=== PATIENT | female | born 1935 | race Caucasian/White ===

== ENCOUNTER → 2016-12-04 | Outpatient (CLI) | payer MEDICARE, BC | LOC: LAB.O 08:58 | PROVIDERS: ATTEND Family Medicine | DX: E87.5 Hyperkalemia (principal); K29.70 Gastritis, unspecified, without bleeding ==

== ENCOUNTER → 2016-12-10 | Outpatient (CLI) | payer MEDICARE, BC | LOC: LAB.O 11:21 | PROVIDERS: ATTEND Family Medicine | DX: R10.84 Generalized abdominal pain (principal); E78.5 Hyperlipidemia, unspecified; E55.9 Vitamin D deficiency, unspecified; Z79.899 Other long term (current) drug therapy ==

== ENCOUNTER → 2016-12-24 | Outpatient (CLI) | payer MEDICARE, BC ==
--- NOTE | 2016-12-24 15:35 | MRI ---
EXAM DESCRIPTION: Brain MRI. CLINICAL HISTORY: Acute onset of vertigo COMPARISON: None. TECHNIQUE: Multiplanar, multisequence MR images were acquired without IV contrast. FINDINGS: The midline structures on today's study are unremarkable. Extensive abnormal confluent changes seen within the white matter which is likely compatible with chronic microvascular ischemic change. No acute infarct. No large territorial infarct. Mild involutional changes noted. Gradient sequences reveal no old blood degradation products on today's study. No abnormal extra-axial fluid. The ventricles are midline and unremarkable. The orbits and globes appear grossly unremarkable. Paranasal sinuses and mastoid air cells are clear. Calvarial signal is un IMPRESSION: Extensive confluent white matter disease likely secondary to chronic microvascular ischemic change. No acute infarct or other additional findings on today's study. Electronically signed by: Rancho Justice MD 12/24/2016 15:33
== END ==
LOC: MRI 12:31
PROVIDERS: ATTEND Family Medicine
DX: H81.10 Benign paroxysmal vertigo, unspecified ear (principal)

== ENCOUNTER → 2017-01-07 | Outpatient (CLI) | payer MEDICARE, BC | END | disposition home or self-care (01) | LOC: LAB.O 13:45 | PROVIDERS: ATTEND Internal Medicine Nephrology | DX: N18.3 Chronic kidney disease, stage 3 (moderate) (principal); D64.9 Anemia, unspecified ==

== ENCOUNTER → 2017-01-24 | Outpatient (CLI) | payer MEDICARE, BC ==
--- NOTE | 2017-01-24 13:41 | US ---
EXAM DESCRIPTION: Venous,Lower Extremity LT CLINICAL HISTORY: 81 years, Female, LEG PAIN COMPARISON: None TECHNIQUE: Duplex venous ultrasound of the left lower extremity was performed. FINDINGS: The left lower extremity veins are completely compressible and demonstrate physiologic responses augmentation maneuvers. Color Doppler images show no intraluminal filling defect. IMPRESSION: No evidence of left lower extremity DVT. Electronically signed by: John Villeda MD 01/24/2017 1:40 PM ELECTRIC WHEELCHAIR REPA[employer]ER
== END | disposition home or self-care (01) ==
LOC: LAB.O 10:13
PROVIDERS: ATTEND Family Medicine
DX: M79.672 Pain in left foot (principal)

== ENCOUNTER → 2017-01-31 | Outpatient (CLI) | payer MEDICARE, BC | END | disposition home or self-care (01) | LOC: LAB.O 11:05 | PROVIDERS: ATTEND Family Medicine | DX: M10.072 Idiopathic gout, left ankle and foot (principal); L03.116 Cellulitis of left lower limb ==

== ENCOUNTER → 2017-02-11 | Outpatient (CLI) | payer MEDICARE, BC | END | disposition home or self-care (01) | LOC: LAB.O 16:04 | PROVIDERS: ATTEND Family Medicine | DX: E87.6 Hypokalemia (principal); N18.3 Chronic kidney disease, stage 3 (moderate); D64.9 Anemia, unspecified ==

== ENCOUNTER → 2017-03-07 | Outpatient (CLI) | payer MEDICARE, BC | END | disposition home or self-care (01) | LOC: GMAB 13:10 | PROVIDERS: ATTEND Family Medicine | DX: E87.5 Hyperkalemia (principal); K29.70 Gastritis, unspecified, without bleeding ==

== ENCOUNTER → 2017-04-03 | Outpatient (CLI) | payer MEDICARE, BC | END | disposition home or self-care (01) | LOC: LAB.O 12:06 | PROVIDERS: ATTEND Family Medicine | DX: E87.5 Hyperkalemia (principal); K29.70 Gastritis, unspecified, without bleeding ==

== ENCOUNTER → 2017-05-02 | Outpatient (CLI) | payer MEDICARE, BC | LOC: LAB 14:12 | PROVIDERS: ATTEND Family Medicine | DX: E87.5 Hyperkalemia (principal); K29.70 Gastritis, unspecified, without bleeding ==

== ENCOUNTER → 2017-05-08 | Outpatient (CLI) | payer MEDICARE, BC ==
--- NOTE | 2017-05-11 12:29 | RAD ---
EXAM DESCRIPTION: Pelvis CLINICAL HISTORY: 81 years, Female, LEFT HIP PAIN COMPARISON: None. FINDINGS: Intact pelvic ring. No consolidation. Mild degenerative change of both hips one left. Mild sacroiliac degenerative change. Postsurgical changes lower lumbar spine. IMPRESSION: No fracture or dislocation. Mild degenerative change. Electronically signed by: Festus Choudhary MD 05/11/2017 12:28 PM CDT
--- NOTE | 2017-05-11 12:30 | RAD ---
EXAM DESCRIPTION: Hip,Left 2 Views CLINICAL HISTORY: 81 years, Female, LEFT HIP PAIN COMPARISON: None. FINDINGS: Bones osteopenic without definite fracture or dislocation. Slight irregularity at the femoral head neck junction is nonspecific is probably a normal variant. This is sometimes associated with impingement syndrome. IMPRESSION: Osteopenic bones without fracture or dislocation Electronically signed by: Festus Choudhary MD 05/11/2017 12:29 PM CDT
== END | disposition home or self-care (01) ==
LOC: RAD 15:14
PROVIDERS: ATTEND Orthopaedic Surgery
DX: M25.552 Pain in left hip (principal)

== ENCOUNTER → 2017-05-09 | Outpatient (CLI) | payer MEDICARE, BC ==
--- NOTE | 2017-05-11 21:25 | MRI ---
MRI left hip without contrast INDICATION: Hip pain chronic osteoarthrosis TECHNIQUE: Noncontrast MR imaging left hip standard protocol FINDINGS: Partially visualized surgical changes from lumbar fusion at L4-5. No advanced arthrosis of the hips. No osteonecrosis or fracture. Hamstring tendons are intact. Minimal greater trochanteric bursal edema bilaterally. No acute internal derangement. Degenerative labral changes are noted especially anterior superior labrum left hip. IMPRESSION: Degenerative labrum left hip anterior superior Lumbar spine fusion partially visualized No acute fracture or osteonecrosis Electronically signed by: Herbert Paz MD 05/11/2017 9:25 PM CDT
== END | disposition home or self-care (01) ==
LOC: MRI 10:37
PROVIDERS: ATTEND Orthopaedic Surgery
DX: M16.10 Unilateral primary osteoarthritis, unspecified hip (principal); E87.5 Hyperkalemia; K29.70 Gastritis, unspecified, without bleeding

== ENCOUNTER → 2017-05-21 | Outpatient (CLI) | payer MEDICARE, BC | END | disposition home or self-care (01) | LOC: LAB.O 08:18 | PROVIDERS: ATTEND Family Medicine | DX: E87.5 Hyperkalemia (principal); K29.70 Gastritis, unspecified, without bleeding ==

== ENCOUNTER → 2017-06-06 | Outpatient (CLI) | payer MEDICARE, BC | LOC: LAB 09:13 | PROVIDERS: ATTEND Family Medicine | DX: E87.5 Hyperkalemia (principal); K29.70 Gastritis, unspecified, without bleeding ==

== ENCOUNTER 2017-06-07 19:11 | Emergency (ER) | payer MEDICARE, BC ==
--- NOTE | 2017-06-07 19:34 | ED.PDOC ---
History of Present Illness - General Chief Complaint: General Stated Complaint: flu like symptoms Time Seen by Provider: 06/07/17 19:11 Source: patient, RN notes reviewed, family Exam Limitations: no limitations - History of Present Illness Initial Comments: Ruddy Green 81 y/o female stated that 3 days ago had been nauseated and 2 days ago started having loose stools several times with flu like symptoms ,loss of appetite and just ate soup all day today.Stated also been coughing non productive.Had history of chf,chronic back pains. Timing/Duration: other - 3 days ago Severity: moderate Improving Factors: nothing Worsening Factors: eating Associated Symptoms: cough, fever/chills Allergies/Adverse Reactions: Allergies Morphine Allergy (Intermediate, Verified 06/07/17 19:32) Acetaminophen [From Darvocet-N] Allergy (Verified 06/07/17 19:32) Cephalexin [From Keflex] Allergy (Verified 06/07/17 19:32) Codeine Allergy (Verified 06/07/17 19:32) Hydromorphone [From Dilaudid] Allergy (Verified 06/07/17 19:32) Iodine Allergy (Verified 06/07/17 19:32) Midazolam [From Versed] Allergy (Verified 06/07/17 19:32) Penicillin G Allergy (Verified 06/07/17 19:32) Propoxyphene [From Darvocet-N] Allergy (Verified 06/07/17 19:32) Tramadol [From Ultram] Allergy (Verified 06/07/17 19:32) Home Medications: Ambulatory Orders Topiramate [Topamax] 200 mg PO BID #0 02/07/13 Spironolactone [Aldactone] 25 mg PO TID 12/06/13 Ascorbic Acid [Vitamin C] 1,000 mg PO BID 08/30/14 Potassium Chloride [Micro-K] 40 meq PO TID 08/24/15 Aspirin [Coated Aspirin] 325 mg PO DAILY 06/07/17 Cetirizine HCl [ZyrTEC] 10 mg PO DAILY 06/07/17 Cholecalciferol [Vitamin D3] 400 unit PO DAILY 06/07/17 Furosemide [Lasix] 80 mg PO BID 06/07/17 Imipramine HCl 10 mg PO DAILY 06/07/17 Memantine HCl-Donepezil HCl [Namzaric 28-10 mg] 1 cap PO DAILY 06/07/17 Multiple Vitamins W/ Minerals [Preservision/Lutein] 1 cap PO BID 06/07/17 Naloxegol Oxalate [Movantik] 25 mg PO DAILY 06/07/17 Omeprazole [PriLOSEC Cap] 40 mg PO DAILY 06/07/17 Oxycodone HCl [Oxycontin] 20 mg PO Q6HR 06/07/17 Sucralfate 1 gm PO TID 06/07/17 Review of Systems - Review of Systems Constitutional: States: no symptoms reported EENTM: States: no symptoms reported Respiratory: States: no symptoms reported Cardiology: States: no symptoms reported Gastrointestinal/Abdominal: States: see HPI Genitourinary: States: no symptoms reported Musculoskeletal: States: see HPI Skin: States: no symptoms reported Neurological: States: no symptoms reported Endocrine: States: no symptoms reported Hematologic/Lymphatic: States: no symptoms reported Past Medical History (General) - Patient Medical History Hx Seizures: No Hx Stroke: Yes Hx Dementia: Yes Hx Asthma: No Hx of COPD: No Hx Cardiac Disorders: Yes Hx Congestive Heart Failure: Yes Hx Pacemaker: No Hx Hypertension: No Hx Thyroid Disease: No Hx Diabetes: No Hx Gastroesophageal Reflux: Yes Hx Renal Disease: Yes Hx Cancer: No Hx of HIV: No Hx Hepatitis C: No Hx MRSA: No Surgical History: cholecystectomy, other - colonoscopy ,egd,hysterctomy,knee - Vaccination History Hx Tetanus, Diphtheria Vaccination: - unknown Hx Influenza Vaccination: No Hx Pneumococcal Vaccination: Yes - Social History Hx Tobacco Use: No Hx Chewing Tobacco Use: No Hx Alcohol Use: No Hx Substance Use: No Hx Substance Use Treatment: No Hx Depression: No Hx Physical Abuse: No Hx Emotional Abuse: No Hx Suspected Abuse: No - Activities of Daily Living Patient Lives Alone: No - with daughters - Female History Patient : No Family Medical History - Family History Mother Living Status: Hx Family Stroke: Yes Hx Family Diabetes: Yes - mom Hx Family;Other: COPD Brother Living Status: Hx Family Cancer: Yes Physical Exam - Physical Exam General Appearance: Alert, No apparent distress Eye Exam: bilateral normal Ears, Nose, Throat: hearing grossly normal, normal ENT inspection, normal pharynx Neck: non-tender, full range of motion, supple Respiratory: chest non-tender, lungs clear, normal breath sounds, no respiratory distress Cardiovascular/Chest: normal peripheral pulses, regular rate, rhythm, no edema, no gallop, no murmur Peripheral Pulses: radial,right: 1+, radial,left: 1+ Gastrointestinal/Abdominal: normal bowel sounds, non tender, soft, no organomegaly Rectal Exam: normal rectal tone, heme positive stool, other - non tarry stool Back Exam: normal inspection, no CVA tenderness, no vertebral tenderness Extremity: non-tender, normal inspection, no pedal edema, no calf tenderness Neurologic: no motor/sensory deficits, alert Skin Exam: normal color, warm/dry Lymphatic: no adenopathy Progress - Progress Progress: 06/07/17 22:16 Vital Signs - 8 hr 06/07/17 19:11 Temperature 99.8 F H Pulse Rate [ 93 H monitor] Respiratory 20 Rate Blood Pressure 128/64 [left upper arm ] O2 Sat by Pulse 97 Oximetry 06/07/17 19:35 WEST NILE VIRUS AB PANEL Routine 06/07/17 20:23 CLOSTRIDIUM DIFFICILE AG/TOXIN Urgent 06/07/17 20:35 URINE CULTURE W/COLONY COUNT Stat 06/07/17 22:15 Pantoprazole Injection [Protonix IV] 80 mg Sodium Chloride 0.9% 100Ml [NS ( NACL 0.9%) 100ml] 80 ml IVPB ONCE Laboratory Results - last 24 hr 06/07/17 06/07/17 06/07/17 20:00 20:00 20:00 WBC 7.3 RBC 3.26 L Hgb 7.6 L* Hct 24.7 L MCV 75.7 L MCH 23.3 L MCHC 30.7 L RDW 17.6 H Plt Count 188 MPV 8.6 Absolute Neuts (auto) 5.70 Absolute Lymphs (auto) 0.80 L Absolute Monos (auto) 0.60 Absolute Eos (auto) 0.10 Absolute Basos (auto) 0.00 Neutrophils % 77.5 Lymphocytes % 11.6 L Monocytes % 8.7 Eosinophils % 1.6 Basophils % 0.6 Normal RBC Morphology 1+ovalocytes Sodium 139 Potassium 5.7 H D Chloride 111 Carbon Dioxide 20 L Anion Gap 13.7 BUN 40 H Creatinine 1.31 H BUN/Creatinine Ratio 30.5 H Random Glucose 115 H Serum Osmolality 288.2 Lactic Acid 1.0 Calcium 8.8 Total Bilirubin 0.4 AST 12 ALT 11 Alkaline Phosphatase 76 Serum Total Protein 6.1 L Albumin 3.2 Globulin 2.9 Albumin/Globulin Ratio 1.1 Urine Color Urine Appearance Urine pH Ur Specific [place] Urine Protein Urine Glucose (UA) Urine Ketones Urine Blood Urine Nitrite Urine Bilirubin Urine Urobilinogen Ur Leukocyte Esterase Urine RBC Urine WBC Ur Epithelial Cells Urine Bacteria Urine Mucus Stool Occult Blood 06/07/17 06/07/17 20:35 20:44 WBC RBC Hgb Hct MCV MCH MCHC RDW Plt Count MPV Absolute Neuts (auto) Absolute Lymphs (auto) Absolute Monos (auto) Absolute Eos (auto) Absolute Basos (auto) Neutrophils % Lymphocytes % Monocytes % Eosinophils % Basophils % Normal RBC Morphology Sodium Potassium Chloride Carbon Dioxide Anion Gap BUN Creatinine BUN/Creatinine Ratio Random Glucose Serum Osmolality Lactic Acid Calcium Total Bilirubin AST ALT Alkaline Phosphatase Serum Total Protein Albumin Globulin Albumin/Globulin Ratio Urine Color Yellow Urine Appearance Sl cloudy Urine pH 6.0 Ur Specific [place] 1.010 Urine Protein Negative Urine Glucose (UA) Negative Urine Ketones Negative Urine Blood Negative Urine Nitrite Positive H Urine Bilirubin Negative Urine Urobilinogen 0.2 Ur Leukocyte Esterase Small H Urine RBC 0-1 Urine WBC 20-30 H Ur Epithelial Cells 1-3 Urine Bacteria 3+ H Urine Mucus Trace Stool Occult Blood Positive - EKG/XRAY/CT XRAY: chest - large hiatal hernia Departure - Departure Clinical Impression: Renal insufficiency, mild, Diarrhea Gastrointestinal bleeding Qualifiers: GI bleed type/associated pathology: unspecified gastrointestinal hemorrhage type Qualified Code(s): K92.2 - Gastrointestinal hemorrhage, unspecified Urinary tract infection Qualifiers: Urinary tract infection type: site unspecified Hematuria presence: without hematuria Qualified Code(s): N39.0 - Urinary tract infection, site not specified Time of Disposition: 22:53 - D/W Dr. Carbone -Hospitalist Disposition: Transfer to Hospital Condition: Fair Departure Forms: ED Discharge - Pt. Copy, Patient Portal Self Enrollment Referrals: Cody Monroy MD [Primary Care Provider] - 1-2 Weeks Home Medications: Ambulatory Orders Topiramate [Topamax] 200 mg PO BID #0 02/07/13 Spironolactone [Aldactone] 25 mg PO TID 12/06/13 Ascorbic Acid [Vitamin C] 1,000 mg PO BID 08/30/14 Potassium Chloride [Micro-K] 40 meq PO TID 08/24/15 Aspirin [Coated Aspirin] 325 mg PO DAILY 06/07/17 Cetirizine HCl [ZyrTEC] 10 mg PO DAILY 06/07/17 Cholecalciferol [Vitamin D3] 400 unit PO DAILY 06/07/17 Furosemide [Lasix] 80 mg PO BID 06/07/17 Imipramine HCl 10 mg PO DAILY 06/07/17 Memantine HCl-Donepezil HCl [Namzaric 28-10 mg] 1 cap PO DAILY 06/07/17 Multiple Vitamins W/ Minerals [Preservision/Lutein] 1 cap PO BID 06/07/17 Naloxegol Oxalate [Movantik] 25 mg PO DAILY 06/07/17 Omeprazole [PriLOSEC Cap] 40 mg PO DAILY 06/07/17 Oxycodone HCl [Oxycontin] 20 mg PO Q6HR 06/07/17 Sucralfate 1 gm PO TID 06/07/17
--- NOTE | 2017-06-07 19:56 | RAD ---
EXAM DESCRIPTION: Chest,1 View CLINICAL HISTORY: 81 years Female fever COMPARISON: 09/30/2014. FINDINGS: There is rightward patient the patient. Postsurgical changes of spinal fixation. There appears to be a retrocardiac density suggesting hiatal hernia. No acute infiltrate. No pleural fluid or pneumothorax. IMPRESSION: Findings suggesting large hiatal hernia Spinal fixation Electronically signed by: Mariajose Ellis 06/07/2017 7:54 PM CDT
[2017-06-07] MEDS ORDERED: PANTOPRAZOLE INJECTION 80 MG in SODIUM CHLORIDE 0.9% 100ML 80 ML IVPB ONE (22:15)
[2017-06-07] MEDS ORDERED: PANTOPRAZOLE SODIUM IV 40 MG VIAL ONE ×2 (22:41→23:18)
[2017-06-07] MEDS ORDERED: SODIUM CHLORIDE 0.9% 1000ML 1,000 ML IVS PRN (22:58)
[2017-06-07 23:27] VITALS: BP 127/60; TEMP 98.5; O2SAT 98
== END 2017-06-07 23:25 | disposition short-term general hospital (02) ==
LOC: ER 19:11
DX: K92.2 Gastrointestinal hemorrhage, unspecified (principal); N39.0 Urinary tract infection, site not specified; R19.7 Diarrhea, unspecified; N28.9 Disorder of kidney and ureter, unspecified; K21.9 Gastro-esophageal reflux disease without esophagitis; K44.9 Diaphragmatic hernia without obstruction or gangrene; I50.9 Heart failure, unspecified; F03.90 Unspecified dementia, unspecified severity, without behavioral disturbance, psychotic disturbance, mood disturbance, and anxiety; Z86.73 Personal history of transient ischemic attack (TIA), and cerebral infarction without residual deficits; Z79.82 Long term (current) use of aspirin; Z79.899 Other long term (current) drug therapy; Z88.6 Allergy status to analgesic agent; Z88.8 Allergy status to other drugs, medicaments and biological substances; Z88.0 Allergy status to penicillin
CPT/HCPCS: 36415; 71010; 80053; 81001; 82270; 83605; 85025; 87086; 87502; J7030

== ENCOUNTER → 2017-06-12 | Outpatient (CLI) | payer MEDICARE, BC | LOC: GMAB 14:51 | PROVIDERS: ATTEND Family Medicine | DX: E87.5 Hyperkalemia (principal); K29.70 Gastritis, unspecified, without bleeding ==

== ENCOUNTER → 2017-06-27 | Outpatient (CLI) | payer MEDICARE, BC | END | disposition home or self-care (01) | LOC: LAB.O 11:06 | PROVIDERS: ATTEND Family Medicine | DX: N18.3 Chronic kidney disease, stage 3 (moderate) (principal) ==

== ENCOUNTER → 2017-07-02 | Outpatient (CLI) | payer MEDICARE, BC | END | disposition home or self-care (01) | LOC: LAB.O 10:01 | PROVIDERS: ATTEND Internal Medicine Nephrology | DX: E55.9 Vitamin D deficiency, unspecified (principal); D63.1 Anemia in chronic kidney disease; N18.3 Chronic kidney disease, stage 3 (moderate) ==

== ENCOUNTER → 2017-07-18 | Outpatient (CLI) | payer MEDICARE, BC | END | disposition home or self-care (01) | LOC: LAB.O 11:32 | PROVIDERS: ATTEND Family Medicine | DX: N18.3 Chronic kidney disease, stage 3 (moderate) (principal) ==

== ENCOUNTER → 2017-07-19 | Outpatient (CLI) | payer MEDICARE, BC | END | disposition home or self-care (01) | LOC: GMA 13:12 | PROVIDERS: ATTEND Nurse Practitioner Family | DX: N30.00 Acute cystitis without hematuria (principal) ==

== ENCOUNTER → 2017-08-06 | Outpatient (CLI) | payer MEDICARE, BC | END | disposition home or self-care (01) | LOC: LAB.O 13:48 | PROVIDERS: ATTEND Family Medicine | DX: N18.3 Chronic kidney disease, stage 3 (moderate) (principal) ==

== ENCOUNTER → 2017-08-07 | Outpatient (CLI) | payer MEDICARE, BC | END | disposition home or self-care (01) | LOC: LAB.O 11:36 | PROVIDERS: ATTEND Internal Medicine Nephrology | DX: D64.9 Anemia, unspecified (principal); N18.3 Chronic kidney disease, stage 3 (moderate); E87.6 Hypokalemia; D63.1 Anemia in chronic kidney disease; D50.9 Iron deficiency anemia, unspecified ==

== ENCOUNTER → 2017-08-19 | Outpatient (CLI) | payer MEDICARE, BC | END | disposition home or self-care (01) | LOC: LAB.O 11:12 | PROVIDERS: ATTEND Family Medicine | DX: N18.3 Chronic kidney disease, stage 3 (moderate) (principal) ==

== ENCOUNTER 2017-08-27 18:38 | Emergency (ER) | payer MEDICARE, BC ==
[2017-08-27] MEDS ORDERED: NITROGLYCERIN 0.4 MG 25 EA TAB SL ONE (18:56)
[2017-08-27] MEDS ORDERED: ASPIRIN (CHEWABLE) 81 MG TAB PO ONE (18:56)
--- NOTE | 2017-08-27 19:41 | RAD ---
EXAM: Single view chest. INDICATION: Chest pain. COMPARISON: Chest x-ray: 06/07/2017. FINDINGS: Cardiac silhouette: Unremarkable. Julia: Unremarkable. Lobar consolidation: None. Pleural effusion: None. Pneumothorax: None. Other: There is a large hiatal hernia. Bones: There is S-shaped scoliosis of the thoracolumbar spine with spinal fusion hardware partially visualized Other: None. IMPRESSION: No acute cardiopulmonary process. Large hiatal hernia Electronically signed by: Thierry Daigle MD 08/27/2017 7:40 PM CDT Workstation: [id number]
--- NOTE | 2017-08-27 20:08 | ED.PDOC ---
History of Present Illness - General Chief Complaint: Chest Pain/[place] Stated Complaint: chest pain Time Seen by Provider: 08/27/17 18:55 Source: patient, RN notes reviewed, Vital Signs reviewed, family - daughter Exam Limitations: no limitations - History of Present Illness Initial Comments: Patient comes in with c/o substernal chest pain that started @ ~12:00 today. It has waxed and waned throughout the day 8/10 @ its worst and 4/10 on arrival to ER. + SOB, nausea and diaphoresis with pain. No prior episodes. Unsure if anything made the pain better or worse. The pain was pressure in nature. Prior to giving nitroglycerine her pain resolved. Timing/Duration: 7-24 hours Severity/Quality: moderate, pressure Location: substernal Chest Pain Radiation: no radiation Activities at Onset: none Prior Chest Pain/Cardiac Workup: no prior chest pain, no prior cardiac workup Improving Factors: nothing Worsening Factors: nothing Nitro Today/Relief: no nitro taken today - patient became pain free prior to NTG being given Aspirin Treatment Today: 81 mg x 4, provided by ED Associated Symptoms: diaphoresis, nausea/vomiting, shortness of breath Allergies/Adverse Reactions: Allergies Morphine Allergy (Intermediate, Verified 08/27/17 19:03) Acetaminophen [From Darvocet-N] Allergy (Verified 08/27/17 19:03) Cephalexin [From Keflex] Allergy (Verified 08/27/17 19:03) Codeine Allergy (Verified 08/27/17 19:03) Hydromorphone [From Dilaudid] Allergy (Verified 08/27/17 19:03) Iodine Allergy (Verified 08/27/17 19:03) Midazolam [From Versed] Allergy (Verified 06/07/17 19:32) Penicillin G Allergy (Verified 08/27/17 19:03) Propoxyphene [From Darvocet-N] Allergy (Verified 08/27/17 19:03) Tramadol [From Ultram] Allergy (Verified 08/27/17 19:03) Home Medications: Ambulatory Orders Topiramate [Topamax] 200 mg PO BID #0 02/07/13 Spironolactone [Aldactone] 25 mg PO TID 12/06/13 Ascorbic Acid [Vitamin C] 1,000 mg PO BID 08/30/14 Potassium Chloride [Micro-K] 40 meq PO TID 08/24/15 Aspirin [Coated Aspirin] 325 mg PO DAILY 06/07/17 Cetirizine HCl [ZyrTEC] 10 mg PO DAILY 06/07/17 Cholecalciferol [Vitamin D3] 400 unit PO DAILY 06/07/17 Furosemide [Lasix] 80 mg PO BID 06/07/17 Imipramine HCl 10 mg PO DAILY 06/07/17 Memantine HCl-Donepezil HCl [Namzaric 28-10 mg] 1 cap PO DAILY 06/07/17 Multiple Vitamins W/ Minerals [Preservision/Lutein] 1 cap PO BID 06/07/17 Naloxegol Oxalate [Movantik] 25 mg PO DAILY 06/07/17 Omeprazole [PriLOSEC Cap] 40 mg PO DAILY 06/07/17 Oxycodone HCl [Oxycontin] 20 mg PO Q6HR 06/07/17 Sucralfate 1 gm PO TID 06/07/17 Review of Systems - Review of Systems Constitutional: States: diaphoresis. Denies: malaise EENTM: States: no symptoms reported Respiratory: States: short of breath Cardiology: States: see HPI, chest pain. Denies: palpitations, syncope Gastrointestinal/Abdominal: States: see HPI, nausea. Denies: abdominal pain, vomiting Musculoskeletal: States: no symptoms reported Skin: States: no symptoms reported Neurological: States: no symptoms reported All other Systems: No Change from Baseline Past Medical History (General) - Patient Medical History Hx Seizures: No Hx Stroke: Yes Hx Dementia: Yes Hx Asthma: No Hx of COPD: No Hx Cardiac Disorders: Yes Hx Congestive Heart Failure: Yes Hx Pacemaker: No Hx Hypertension: No Hx Thyroid Disease: No Hx Diabetes: No Hx Gastroesophageal Reflux: Yes Hx Renal Disease: Yes Hx Cancer: No Hx of HIV: No Hx Hepatitis C: No Hx MRSA: No Surgical History: cholecystectomy, Hysterectomy - Vaccination History Hx Tetanus, Diphtheria Vaccination: - unknown Hx Influenza Vaccination: Yes Hx Pneumococcal Vaccination: Yes - Social History Hx Tobacco Use: No Hx Chewing Tobacco Use: No Hx Alcohol Use: No Hx Substance Use: No Hx Substance Use Treatment: No Hx Depression: No Hx Physical Abuse: No Hx Emotional Abuse: No Hx Suspected Abuse: No - Activities of Daily Living Hospice Agency (if applicable):: None - Female History Patient is a Female of Child Bearing Age (10 -59 yrs old): No Patient : No Family Medical History - Family History Mother Living Status: Hx Family Stroke: Yes Hx Family Diabetes: Yes - mom Hx Family;Other: COPD Brother Living Status: Hx Family Cancer: Yes Physical Exam - Physical Exam General Appearance: Alert, Comfortable, No apparent distress, Well Developed, Well Groomed, Well Hydrated, Well Nourished Neck: supple, normal inspection Respiratory: chest non-tender, lungs clear, normal breath sounds, no respiratory distress, no accessory muscle use Cardiovascular/Chest: normal peripheral pulses, regular rate, rhythm, no edema, no gallop, no JVD, no murmur Peripheral Pulses: posterior tibialis,right: 2+, posterior tibialis,left: 2+ Gastrointestinal/Abdominal: normal bowel sounds, non tender, soft, no organomegaly Extremity: normal inspection, no pedal edema Neurologic: alert, normal mood/affect, oriented x 3 Skin Exam: normal color, warm/dry Comments: Vital Signs 08/27/17 18:40 Temperature 99.1 F Pulse Rate [ 99 H pulse ox] Respiratory 20 Rate Blood Pressure 138/69 [Right Arm] O2 Sat by Pulse 99 Oximetry Progress - Progress Progress: 08/27/17 23:25 Patient has been pain free and sleeping for most of her time here. 2 sets of cardiac enzymes are normal. Will d/c home and have her follow up with her Box Machine Operator. Did discuss with daughter that symptoms could also be related to her large hiatial hernia. This is a known and unrepairable hernia. - Results/Orders Results/Orders: Laboratory Tests 08/27/17 08/27/17 08/27/17 19:28 19:28 19:28 WBC 4.6 L RBC 4.51 Hgb 11.4 L Hct 36.8 MCV 81.7 MCH 25.2 L MCHC 31.0 L RDW 19.8 H Plt Count 144 MPV 9.3 Absolute Neuts (auto) 2.80 Absolute Lymphs (auto) 1.10 Absolute Monos (auto) 0.40 Absolute Eos (auto) 0.20 Absolute Basos (auto) 0.00 Neutrophils % 60.2 Lymphocytes % 24.8 Monocytes % 9.7 H Eosinophils % 4.6 Basophils % 0.7 D-Dimer, Quantitative 249 H* Sodium 136 Potassium 5.0 Chloride 110 Carbon Dioxide 21 Anion Gap 10.0 L BUN 20 H Creatinine 1.46 H BUN/Creatinine Ratio 13.7 Random Glucose 105 Serum Osmolality 274.9 L Calcium 7.6 L Total Bilirubin 0.5 AST 14 ALT 15 Alkaline Phosphatase 116 Creatine Kinase 61 CK-MB (CK-2) 2.3 CK-MB (CK-2) % Not Reportable Troponin I < 0.02 Serum Total Protein 6.6 Albumin 3.5 Globulin 3.1 Albumin/Globulin Ratio 1.1 08/27/17 22:29 WBC RBC Hgb Hct MCV MCH MCHC RDW Plt Count MPV Absolute Neuts (auto) Absolute Lymphs (auto) Absolute Monos (auto) Absolute Eos (auto) Absolute Basos (auto) Neutrophils % Lymphocytes % Monocytes % Eosinophils % Basophils % D-Dimer, Quantitative Sodium Potassium Chloride Carbon Dioxide Anion Gap BUN Creatinine BUN/Creatinine Ratio Random Glucose Serum Osmolality Calcium Total Bilirubin AST ALT Alkaline Phosphatase Creatine Kinase 55 CK-MB (CK-2) 2.1 CK-MB (CK-2) % Not Reportable Troponin I < 0.02 Serum Total Protein Albumin Globulin Albumin/Globulin Ratio - EKG/XRAY/CT EKG: Sinus, no ST T wave changes Comments: Rate 87 XRAY: chest - No acute process, large hiatial hernia Departure - Departure Clinical Impression: Hiatal hernia Chest pain Qualifiers: Chest pain type: unspecified Qualified Code(s): R07.9 - Chest pain, unspecified Time of Disposition: 23:27 Disposition: Discharge to Home or Self Care Condition: Good Departure Forms: ED Discharge - Pt. Copy, Patient Portal Self Enrollment Instructions: DI for Chest Pain Diet: resume usual diet Activity: increase activity as tolerated Referrals: Cody Monroy MD [Primary Care Provider] - 1-2 Weeks Home Medications: Ambulatory Orders Topiramate [Topamax] 200 mg PO BID #0 02/07/13 Spironolactone [Aldactone] 25 mg PO TID 12/06/13 Ascorbic Acid [Vitamin C] 1,000 mg PO BID 08/30/14 Potassium Chloride [Micro-K] 40 meq PO TID 08/24/15 Aspirin [Coated Aspirin] 325 mg PO DAILY 06/07/17 Cetirizine HCl [ZyrTEC] 10 mg PO DAILY 06/07/17 Cholecalciferol [Vitamin D3] 400 unit PO DAILY 06/07/17 Furosemide [Lasix] 80 mg PO BID 06/07/17 Imipramine HCl 10 mg PO DAILY 06/07/17 Memantine HCl-Donepezil HCl [Namzaric 28-10 mg] 1 cap PO DAILY 06/07/17 Multiple Vitamins W/ Minerals [Preservision/Lutein] 1 cap PO BID 06/07/17 Naloxegol Oxalate [Movantik] 25 mg PO DAILY 06/07/17 Omeprazole [PriLOSEC Cap] 40 mg PO DAILY 06/07/17 Oxycodone HCl [Oxycontin] 20 mg PO Q6HR 06/07/17 Sucralfate 1 gm PO TID 06/07/17 Additional Instructions: Follow up with Box Machine Operator
[2017-08-27 22:15] VITALS: O2SAT 95
[2017-08-27 23:07] VITALS: BP 113/65
[2017-08-27 23:39] VITALS: TEMP 97
== END 2017-08-27 23:39 | disposition home or self-care (01) ==
LOC: ER 18:38
DX: R07.9 Chest pain, unspecified (principal); K21.9 Gastro-esophageal reflux disease without esophagitis; K44.9 Diaphragmatic hernia without obstruction or gangrene; F03.90 Unspecified dementia, unspecified severity, without behavioral disturbance, psychotic disturbance, mood disturbance, and anxiety; I50.9 Heart failure, unspecified; Z86.73 Personal history of transient ischemic attack (TIA), and cerebral infarction without residual deficits; Z79.82 Long term (current) use of aspirin; Z79.899 Other long term (current) drug therapy; Z88.0 Allergy status to penicillin; Z88.6 Allergy status to analgesic agent; Z88.8 Allergy status to other drugs, medicaments and biological substances

== ENCOUNTER → 2017-09-12 | Outpatient (CLI) | payer MEDICARE, BC | END | disposition home or self-care (01) | LOC: LAB.O 12:13 | PROVIDERS: ATTEND Family Medicine | DX: N18.3 Chronic kidney disease, stage 3 (moderate) (principal) ==

== ENCOUNTER → 2017-10-21 | Outpatient (CLI) | payer MEDICARE, BC | END | disposition home or self-care (01) | LOC: LAB.O 16:26 | PROVIDERS: ATTEND Family Medicine | DX: N18.3 Chronic kidney disease, stage 3 (moderate) (principal) ==

== ENCOUNTER → 2017-11-27 | Outpatient (CLI) | payer MEDICARE, BC | END | disposition home or self-care (01) | LOC: LAB.O 11:41 | PROVIDERS: ATTEND Family Medicine | DX: N18.3 Chronic kidney disease, stage 3 (moderate) (principal); D63.1 Anemia in chronic kidney disease ==

== ENCOUNTER → 2018-01-15 | Outpatient (CLI) | payer MEDICARE, BC | LOC: GMAB 15:47 | PROVIDERS: ATTEND Family Medicine | DX: I50.9 Heart failure, unspecified (principal); N18.3 Chronic kidney disease, stage 3 (moderate); N39.0 Urinary tract infection, site not specified ==

== ENCOUNTER → 2018-03-04 | Outpatient (CLI) | payer MEDICARE, BC | LOC: LAB.O 11:47 | PROVIDERS: ATTEND Family Medicine | DX: N18.3 Chronic kidney disease, stage 3 (moderate) (principal) ==

== ENCOUNTER → 2018-03-09 | Outpatient (CLI) | payer MEDICARE, BC | LOC: BFHH 18:45 | PROVIDERS: ATTEND Family Medicine | DX: N39.0 Urinary tract infection, site not specified (principal) ==

== ENCOUNTER → 2018-04-02 | Outpatient (CLI) | payer MEDICARE, BC | LOC: BFHH 14:12 | PROVIDERS: ATTEND Family Medicine | DX: I10 Essential (primary) hypertension (principal) ==

== ENCOUNTER → 2018-05-08 | Outpatient (CLI) | payer MEDICARE, BC | LOC: BFHH 10:05 | PROVIDERS: ATTEND Family Medicine | DX: N18.3 Chronic kidney disease, stage 3 (moderate) (principal); I13.0 Hypertensive heart and chronic kidney disease with heart failure and stage 1 through stage 4 chronic kidney disease, or unspecified chronic kidney disease; D64.9 Anemia, unspecified; N25.81 Secondary hyperparathyroidism of renal origin; E87.8 Other disorders of electrolyte and fluid balance, not elsewhere classified; E55.9 Vitamin D deficiency, unspecified ==

== ENCOUNTER → 2018-06-03 | Outpatient (CLI) | payer MEDICARE, BC | LOC: BFHH 11:53 | PROVIDERS: ATTEND Family Medicine | DX: I13.0 Hypertensive heart and chronic kidney disease with heart failure and stage 1 through stage 4 chronic kidney disease, or unspecified chronic kidney disease (principal); N18.3 Chronic kidney disease, stage 3 (moderate) ==

== ENCOUNTER → 2018-06-11 | Outpatient (CLI) | payer MEDICARE, BC | LOC: BFHH 14:33 | PROVIDERS: ATTEND Family Medicine | DX: N39.0 Urinary tract infection, site not specified (principal) ==

== ENCOUNTER → 2018-06-24 | Outpatient (CLI) | payer MEDICARE, BC | LOC: BFHH 14:51 | PROVIDERS: ATTEND Family Medicine | DX: N18.3 Chronic kidney disease, stage 3 (moderate) (principal) ==

== ENCOUNTER → 2018-07-22 | Outpatient (CLI) | payer MEDICARE, BC | LOC: BFHH 10:54 | PROVIDERS: ATTEND Family Medicine | DX: M06.9 Rheumatoid arthritis, unspecified (principal); H35.361 Drusen (degenerative) of macula, right eye; I13.0 Hypertensive heart and chronic kidney disease with heart failure and stage 1 through stage 4 chronic kidney disease, or unspecified chronic kidney disease; I50.40 Unspecified combined systolic (congestive) and diastolic (congestive) heart failure; N18.3 Chronic kidney disease, stage 3 (moderate); M54.5 Low back pain; G89.4 Chronic pain syndrome; F32.9 Major depressive disorder, single episode, unspecified; F03.90 Unspecified dementia, unspecified severity, without behavioral disturbance, psychotic disturbance, mood disturbance, and anxiety ==

== ENCOUNTER → 2018-08-03 | Outpatient (CLI) | payer MEDICARE, BC | LOC: LAB.O 11:49 | PROVIDERS: ATTEND Family Medicine | DX: E87.6 Hypokalemia (principal) ==

== ENCOUNTER → 2018-08-10 | Outpatient (CLI) | payer MEDICARE, BC | LOC: GMAE 17:44 | PROVIDERS: ATTEND Family Medicine | DX: M79.672 Pain in left foot (principal) ==

== ENCOUNTER → 2018-08-21 | Outpatient (CLI) | payer MEDICARE, BC | LOC: BFHH 08:41 | PROVIDERS: ATTEND Family Medicine | DX: I10 Essential (primary) hypertension (principal); I50.40 Unspecified combined systolic (congestive) and diastolic (congestive) heart failure; N18.3 Chronic kidney disease, stage 3 (moderate) ==

== ENCOUNTER → 2018-08-25 | Outpatient (CLI) | payer MEDICARE, BC | LOC: LAB.O 11:05 | PROVIDERS: ATTEND Family Medicine | DX: N18.3 Chronic kidney disease, stage 3 (moderate) (principal); D64.9 Anemia, unspecified; E87.6 Hypokalemia ==

== ENCOUNTER → 2018-08-27 | Outpatient (CLI) | payer MEDICARE, BC | LOC: LAB.O 11:11 | PROVIDERS: ATTEND Family Medicine | DX: N18.3 Chronic kidney disease, stage 3 (moderate) (principal); D64.9 Anemia, unspecified ==

== ENCOUNTER → 2018-09-09 | Outpatient (CLI) | payer MEDICARE, BC | LOC: GMAE 17:22 | PROVIDERS: ATTEND Family Medicine | DX: J06.9 Acute upper respiratory infection, unspecified (principal) ==

== ENCOUNTER → 2018-09-22 | Outpatient (CLI) | payer MEDICARE, BC | LOC: LAB.O 10:45 | PROVIDERS: ATTEND Family Medicine | DX: N18.3 Chronic kidney disease, stage 3 (moderate) (principal); D64.9 Anemia, unspecified; E87.6 Hypokalemia ==

== ENCOUNTER 2018-09-23 13:16 | Inpatient (IN) | payer MEDICARE, BC ==
--- NOTE | 2018-09-23 13:18 | HP ---
SUPERVISING PHYSICIAN: Margie Aaron MD CHIEF COMPLAINT: Weakness, shortness of breath and exhaustion. 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 She sees her GI doctor in [place], Dr. Shipman. She is known to have a GI bleed that is very slowed due to this angiodysplasia. Dr. Shipman wanted her to come to [place] today as an outpatient to receive a blood transfusion as her hemoglobin was 8.1 yesterday. They did not have room for her in [place] for this outpatient treatment, so she saw Dr. Aaron today. She complained of being extremely tired with weakness and exhaustion. She lives at an assisted living area in [place]. She does have some mild hematochezia and some chronic back pain. She also has diastolic heart failure with her last ejection fraction of 70% on her echocardiogram in 2010. She is on fairly high doses of Lasix daily. Dr. Aaron called me for hospital admission for blood transfusion. The patient was admitted to the Medical/Surgical Floor. Initially , her lab today showed WBC 5.6, hemoglobin 6.9, hematocrit 23.2, platelet count 239. Electrolytes are basically within normal limits. BUN 43, creatinine 1.67. Baseline creatinine is approximately 1.8 to 1.9. Glucose 107, BNP 151. PAST MEDICAL HISTORY: 1. Congestive heart failure, diastolic in etiology with 70% ejection fraction per echocardiogram in 2010. 2. Chronic renal insufficiency. 3. Chronic low back pain. 4. Osteoporosis. 5. Rheumatoid arthritis. 6. Migraine headaches. PAST SURGICAL HISTORY: 1. Hysterectomy. 2. Cholecystectomy. 3. Left and right knee replacements. 4. Back surgery times 3. 5. Esophageal dilatation. OUTPATIENT MEDICATIONS: Per the EMR and awaiting verification. ALLERGIES: 1. SULFA. 2. PENICILLIN. 3. CODEINE. 4. DARVON. 5. ULTRAM. 6. DILAUDID. 7. KEFLEX. 8. MORPHINE SULFATE. SOCIAL HISTORY: She lives in [place]. She has two daughters. She denies any ETOH, tobacco or illicit drug use. REVIEW OF SYSTEMS: GENERAL: Positive for fatigue. Negative for chills or fever. HEENT: Negative for sinus symptoms, ear pain, vision changes or sore throat. RESPIRATORY: Positive for dyspnea. Negative for wheezing, coughing. CARDIAC: Negative for chest pain. GASTROINTESTINAL: Positive for hematochezia. Negative for nausea, vomiting, diarrhea or abdominal pain. SKIN: Negative for lesions or rashes. GENITOURINARY: Negative for hematuria, dysuria or polyuria. MUSCULOSKELETAL: Positive for chronic back pain. NEUROLOGIC: Positive for weakness. Negative for headache, dizziness or seizures. HEMATOLOGIC: Positive for easy bruising and history of multiple blood transfusions. PHYSICAL EXAMINATION: VITAL SIGNS: Afebrile. Heart rate 94. Blood pressure 125/68. Respiratory rate 18. O2 saturation 93% on room air. GENERAL: This is a thin, 83-year-old female lying in her hospital bed. She does appear moderately ill. HEENT: Normocephalic, atraumatic. Pupils are equal and reactive. Oropharynx is clear. NECK: Supple without mass. No discernible jugular venous distention. RESPIRATORY: Essentially clear to auscultation bilaterally. CHEST: There is equal rise and fall of the chest with inspiration and expiration. CARDIOVASCULAR: Regular rate and rhythm. GASTROINTESTINAL: Abdomen is soft, nondistended, nontender. Bowel sounds are positive. EXTREMITIES: No cyanosis or clubbing. She does have a trace of pedal edema. NEUROLOGIC: Awake, alert and oriented times three. LABORATORY: Labs and films are as per history of present illness. ASSESSMENT: 1. Symptomatic anemia with a significant history of chronic gastrointestinal bleed requiring multiple transfusions. 2. History of angiodysplasia of the colon. She is followed by Dr. Shipman, GI specialist in [place]. 3. Weakness and exhaustion secondary to #1. 4. Congestive heart failure, diastolic in etiology with 70% ejection fraction per echocardiogram in 2010. 5. Chronic renal insufficiency with baseline creatinine of 1.8 to 1.9. Creatinine on admission was 1.67. Today, it is 1.75. 6. Chronic low back pain on scheduled narcotics. 7. History of rheumatoid arthritis. PLAN: We will admit the patient to the hospital. I have typed and crossed for 4 units. We will transfuse 2 units of packed red blood cells over 4 hours each. We will separate the transfusions by 2 hours. She will get 40 mg of Lasix after the first unit. I have restarted the patient's home medications with adjustments as per the family's request. She has SCDs for DVT prophylaxis and proton pump inhibitor for ulcer prophylaxis. I will recheck her lab in the morning. If she needs the additional units, we will transfuse those at that time. Otherwise, hopefully she can be discharged sometime tomorrow with close followup with Dr. Aaron as well as her gastrointestinal doctor. We will monitor the patient closely and follow as needed. #[id number] [facility]
[2018-09-23] MEDS ORDERED: SODIUM CHLORIDE 0.9% (FLUSH) 10 ML SYG IV PRN (13:38)
[2018-09-23] MEDS ORDERED: FUROSEMIDE INJ 20 MG/2 ML VIAL IV ONE ×2 (13:47→18:01)
[2018-09-23] MEDS ORDERED: diphenhydrAMINE HCL 50 MG/ML VIAL IV ONE (13:47)
[2018-09-23] MEDS ORDERED: ACETAMINOPHEN 325 MG TAB PO ONE (13:47)
[2018-09-23] MEDS ORDERED: IV SET AND CAP CHANGE INJ INJ SCH (14:00)
[2018-09-23] MEDS ORDERED: SODIUM CHLORIDE 0.9% 500ML 500 ML IVS SCH (14:00)
[2018-09-23] MEDS ORDERED: ONDANSETRON INJ 4 MG/2 ML VIAL IV PRN (16:42)
[2018-09-23] MEDS ORDERED: POTASSIUM CHLORIDE 10 MEQ TAB PO SCH ×2 (17:00→20:00)
[2018-09-23] MEDS ORDERED: OXYCODONE HCL 20 MG PO SCH (17:00)
[2018-09-23] MEDS ORDERED: POTASSIUM CHLORIDE 40 MEQ PO SCH (17:00)
[2018-09-23] MEDS ORDERED: FUROSEMIDE 40 MG TAB PO SCH ×2 (18:00→21:00)
[2018-09-23] MEDS: OXYCODONE HCL 20 MG PO SCH (18:46)
[2018-09-23] MEDS: SPIRONOLACTONE 25 MG TAB PO SCH (20:47)
[2018-09-23] MEDS: NON-FORMULARY MEDICATION 1 EA MIS (Topiramate [Topamax] 200 MG) PO SCH (20:52)
[2018-09-23] MEDS ORDERED: NAMZARIC PO SCH (21:00)
[2018-09-23] MEDS ORDERED: IMIPRAMINE HCL 10 MG PO SCH (21:00)
[2018-09-23] MEDS ORDERED: SUCRALFATE 1 GM TAB PO SCH (21:00)
[2018-09-23] MEDS: SODIUM CHLORIDE 0.9% (FLUSH) 10 ML SYG IV SCH (21:00)
[2018-09-23] MEDS ORDERED: IMIPRAMINE HCL 25 MG TAB PO SCH (21:00)
[2018-09-23] MEDS ORDERED: FUROSEMIDE 80 MG PO SCH (21:00)
[2018-09-23] MEDS ORDERED: FUROSEMIDE INJ 40 MG/4 ML VIAL ONE (21:54)
[2018-09-24] MEDS ORDERED: POTASSIUM CHLORIDE 10 MEQ TAB PO ONE
[2018-09-24] MEDS: OXYCODONE HCL 20 MG PO SCH ×3 (00:10→12:28)
[2018-09-24] MEDS: POTASSIUM CHLORIDE 10 MEQ TAB PO SCH ×4 (00:57→12:30)
[2018-09-24] MEDS: SUCRALFATE 1 GM TAB PO SCH ×2 (05:41→12:27)
[2018-09-24] MEDS ORDERED: FUROSEMIDE 40 MG TAB PO SCH (06:00)
[2018-09-24] MEDS ORDERED: PANTOPRAZOLE SODIUM IV 40 MG VIAL IV SCH (06:30)
[2018-09-24] MEDS ORDERED: ACETAMINOPHEN 325 MG TAB PO PRN (08:48)
[2018-09-24] MEDS ORDERED: ASPIRIN (ENTERIC COATED) 81 MG TAB PO ONE (08:59)
[2018-09-24] MEDS ORDERED: NON-FORMULARY MEDICATION 1 EA MIS (Memantine Hcl-Donepezil Hcl [Namzaric 28-10 Mg] 1 CAP) PO SCH (09:00)
[2018-09-24] MEDS ORDERED: NON-FORMULARY MEDICATION 1 EA MIS (Fexofenadine Hcl [Allegra Allergy] 180 MG) PO SCH (09:00)
[2018-09-24] MEDS ORDERED: diphenhydrAMINE HCL 12.5 MG/5 ML UD PO SCH (09:00)
[2018-09-24] MEDS ORDERED: ASPIRIN (CHEWABLE) 81 MG TAB PO SCH (09:00)
[2018-09-24] MEDS ORDERED: LORATADINE 10 MG TAB PO SCH (09:00)
[2018-09-24] MEDS: SPIRONOLACTONE 25 MG TAB PO SCH (09:30)
[2018-09-24] MEDS: NON-FORMULARY MEDICATION 1 EA MIS (Topiramate [Topamax] 200 MG) PO SCH (09:30)
[2018-09-24] MEDS: SODIUM CHLORIDE 0.9% (FLUSH) 10 ML SYG IV SCH (09:30)
[2018-09-24] MEDS ORDERED: FUROSEMIDE INJ 20 MG/2 ML VIAL IV ONE (12:00)
[2018-09-24 13:46] VITALS: BP 146/75; TEMP 98.4; O2SAT 98
--- NOTE | 2018-09-24 14:29 | DS ---
SUPERVISING PHYSICIAN: Margie Aaron MD DISCHARGE DIAGNOSIS: 1. Symptomatic anemia with a significant history of chronic gastrointestinal bleed requiring multiple transfusions. 2. History of angiodysplasia of the colon. She is followed by Dr. Shipman, GI specialist in [place]. 3. Weakness and exhaustion secondary to #1. 4. Congestive heart failure, diastolic in etiology with 70% ejection fraction per echocardiogram in 2010. 5. Chronic renal insufficiency with baseline creatinine of 1.8 to 1.9. Creatinine on admission was 1.67. Today, it is 1.75. 6. Chronic low back pain on scheduled narcotics. 7. History of rheumatoid arthritis. 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 She sees her GI doctor in [place], Dr. Shipman. She is known to have a very slow GI bleed due to this angiodysplasia. Recently, Dr. Shipman wanted her to come to [place] for outpatient blood transfusion, but there were no beds available. She had blood drawn the day prior to admission in Dr. Aaron's, her primary care physician, office and her hemoglobin was 8.1. Today, she presented to his office with extreme weakness as well as shortness of breath. Dr. Aaron called me for direct hospital admission for blood transfusion. The patient was admitted to the Medical/Surgical Floor. Initially, her lab showed WBC 5.6, hemoglobin 6.9, hematocrit 23.2, platelet count 239. Electrolytes were basically within normal limits. BUN 43, creatinine 1.67. Baseline creatinine is approximately 1.8 to 1.9. Glucose 107, BNP 151. HOSPITAL COURSE: After being admitted to the hospital, she received 2 units of packed red blood cells. They were given very slowly over 4 hours each. After her first unit, she received 40 mg of Lasix IV. Staff waited 2 hours before starting her second unit. This morning, her laboratory showed a hemoglobin 9.6 , hematocrit 31.6. Due to the chronic nature of her anemia as well as her continued weakness, an additional unit was given this morning. After the third unit of blood was transfused, she received 20 mg of Lasix IV push. Her home medications were restarted while she was here in the hospital. Today, since her third unit has been transfused, she and her daughters feel that she can go home with close followup with Dr. Shipman as well as Dr. Aaron. DISCHARGE PLAN: The patient will be discharged home in stable condition. She is to resume her previous diet as well as increase her activity as tolerated. She has a followup appointment with her primary care physician, Dr. Aaron, on 09/28/18 at 3:30 PM. It is recommended she have a CBC done at that time. He said he would schedule her for iron infusions and she will also followup with Dr. Shipman as previously planned. She is to resume her previous medications. She is to return to Dr. Aaron's office or call Dr. Shipman's or return to the hospital for any problems or complications. DISCHARGE MEDICATIONS: 1. Topamax. 2. Spironolactone. 3. Vitamin C. 4. Oxycodone. 5. Multivitamins. 6. Vitamin D3. 7. Sucralfate. 8. Furosemide. 9. Namzaric. 10. Imipramine. 11. Fexofenadine. 12. Zofran. 13. Iron heme polypeptide. 14. Dexilant. 15. 81 mg aspirin. 16. Potassium chloride. #[id number] [facility]
== END 2018-09-24 15:20 | disposition home or self-care (01) | DRG 812 ==
LOC: MS 13:16
PROVIDERS: ADMIT Nurse Practitioner Acute Care; ATTEND Nurse Practitioner Acute Care
PROC: 30263N1 (ICD-10-PCS; principal; 2018-09-23)
DX: D62 Acute posthemorrhagic anemia (principal); I50.32 Chronic diastolic (congestive) heart failure; D63.1 Anemia in chronic kidney disease; N18.9 Chronic kidney disease, unspecified; K55.20 Angiodysplasia of colon without hemorrhage; G89.29 Other chronic pain; M54.9 Dorsalgia, unspecified; M06.9 Rheumatoid arthritis, unspecified; Z79.891 Long term (current) use of opiate analgesic; Z79.82 Long term (current) use of aspirin; M81.0 Age-related osteoporosis without current pathological fracture; G43.909 Migraine, unspecified, not intractable, without status migrainosus; Z88.0 Allergy status to penicillin; Z88.5 Allergy status to narcotic agent; Z88.2 Allergy status to sulfonamides

== ENCOUNTER → 2018-09-28 | Outpatient (CLI) | payer MEDICARE, BC | LOC: LAB.O 10:57 | PROVIDERS: ATTEND Family Medicine | DX: N18.3 Chronic kidney disease, stage 3 (moderate) (principal); E87.6 Hypokalemia; D64.9 Anemia, unspecified ==

== ENCOUNTER → 2018-10-26 | Outpatient (CLI) | payer MEDICARE, BC | LOC: LAB.O 11:08 | PROVIDERS: ATTEND Family Medicine | DX: N18.3 Chronic kidney disease, stage 3 (moderate) (principal); D64.9 Anemia, unspecified; E87.6 Hypokalemia ==

== ENCOUNTER → 2018-11-09 | Outpatient (CLI) | payer MEDICARE, BC | LOC: LAB.O 12:33 | PROVIDERS: ATTEND Family Medicine | DX: I12.9 Hypertensive chronic kidney disease with stage 1 through stage 4 chronic kidney disease, or unspecified chronic kidney disease (principal); D63.1 Anemia in chronic kidney disease; N18.3 Chronic kidney disease, stage 3 (moderate); D64.9 Anemia, unspecified; E87.6 Hypokalemia ==

== ENCOUNTER → 2018-12-19 | Outpatient (CLI) | payer MEDICARE, BC | LOC: LAB.O 11:53 | PROVIDERS: ATTEND Family Medicine | DX: N18.3 Chronic kidney disease, stage 3 (moderate) (principal); D64.9 Anemia, unspecified; E87.6 Hypokalemia ==

== ENCOUNTER 2018-12-23 15:12 | Observation (INO) | payer MEDICARE, BC ==
--- NOTE | 2018-12-23 16:06 | ED.PDOC ---
History of Present Illness - General Chief Complaint: General Stated Complaint: weakness Time Seen by Provider: 12/23/18 15:54 Source: patient, family Exam Limitations: no limitations - History of Present Illness Initial Comments: HERE FOR TRANSFUSION. PT WITH CHRONIC ANEMIA SECONDARY TO CHRONIC MICROSCOPIC COLONIC HEMORRHAGES. HAS NOT BEEN FEELING WELL FOR 2 DAYS. HAD CBC DONE TODAY. WAS DOWN TO 7.7 FROM 8.6. WAS INSTRUCTED BY PCP TO COME TO ER FOR TRANSFUSION. Severity: moderate Worsening Factors: nothing Associated Symptoms: weakness Allergies/Adverse Reactions: Allergies Morphine Allergy (Intermediate, Verified 12/23/18 15:28) Acetaminophen [From Darvocet-N] Allergy (Verified 12/23/18 15:28) Cephalexin [From Keflex] Allergy (Verified 12/23/18 15:28) Codeine Allergy (Verified 12/23/18 15:28) Hydromorphone [From Dilaudid] Allergy (Verified 12/23/18 15:28) Iodine Allergy (Verified 12/23/18 15:28) Midazolam [From Versed] Allergy (Verified 12/23/18 15:28) Penicillin G Allergy (Verified 12/23/18 15:28) Propoxyphene [From Darvocet-N] Allergy (Verified 12/23/18 15:28) Tramadol [From Ultram] Allergy (Verified 12/23/18 15:28) Home Medications: Ambulatory Orders Topiramate [Topamax] 200 mg PO BID #0 02/07/13 Spironolactone [Aldactone] 50 mg PO TID 12/06/13 Ascorbic Acid [Vitamin C] 1,000 mg PO BID 08/30/14 Cholecalciferol [Vitamin D3] 400 unit PO DAILY 06/07/17 Imipramine HCl [Imipramine Hydrochloride] 10 mg PO TID 06/07/17 Memantine HCl-Donepezil HCl [Namzaric 28-10 mg] 1 cap PO DAILY 06/07/17 Multiple Vitamins W/ Minerals [Preservision/Lutein] 1 cap PO BID 06/07/17 Oxycodone HCl [Oxycontin] 20 mg PO QID 06/07/17 Sucralfate 1 gm PO TID 06/07/17 Aspirin [Aspirin EC Low Dose] 81 mg PO DAILY 09/23/18 Dexlansoprazole [Dexilant] 60 mg PO DAILY 09/23/18 Fexofenadine HCl [Cheryle Allergy] 180 mg PO DAILY 09/23/18 Iron Heme Polypeptide [Proferrin Es] 12 mg PO DAILY 09/23/18 Ondansetron HCl [Zofran] 4 mg PO TID 09/23/18 Furosemide [Lasix] 80 mg PO BID #0 09/24/18 Potassium Chloride [Micro-K] 40 meq PO TID #360 cap 09/24/18 Review of Systems - Review of Systems Constitutional: Denies: chills, fever EENTM: States: no symptoms reported Respiratory: Denies: cough, short of breath Cardiology: Denies: chest pain, palpitations, syncope Gastrointestinal/Abdominal: States: other - NO MELENA. Denies: abdominal pain Genitourinary: States: no symptoms reported Musculoskeletal: States: no symptoms reported Neurological: States: no symptoms reported Endocrine: States: no symptoms reported Hematologic/Lymphatic: States: anemia Past Medical History (General) - Patient Medical History Hx Seizures: No Hx Stroke: Yes Hx Dementia: Yes Hx Asthma: No Hx of COPD: No Hx Cardiac Disorders: Yes Hx Congestive Heart Failure: Yes Hx Pacemaker: No Hx Hypertension: No Hx Thyroid Disease: No Hx Diabetes: No Hx Gastroesophageal Reflux: Yes Hx Renal Disease: Yes Hx Cancer: No Hx of HIV: No Hx Hepatitis C: No Hx MRSA: No Surgical History: cholecystectomy, Hysterectomy - Vaccination History Hx Tetanus, Diphtheria Vaccination: - unknown Hx Influenza Vaccination: Yes Hx Pneumococcal Vaccination: Yes - Social History Hx Tobacco Use: No Hx Chewing Tobacco Use: No Hx Alcohol Use: No Hx Substance Use: No Hx Substance Use Treatment: No Hx Depression: No Hx Physical Abuse: No Hx Emotional Abuse: No Hx Suspected Abuse: No - Activities of Daily Living [facility]Assisted Living (if applicable):: [facility] - Female History Patient : No Family Medical History - Family History Mother Living Status: Hx Family Stroke: Yes Hx Family Diabetes: Yes - mom Hx Family;Other: COPD Brother Living Status: Hx Family Cancer: Yes Physical Exam - Physical Exam General Appearance: Alert, No apparent distress Eye Exam: bilateral normal Ears, Nose, Throat: hearing grossly normal, normal ENT inspection Neck: full range of motion, supple, normal inspection Respiratory: lungs clear, normal breath sounds Cardiovascular/Chest: regular rate, rhythm, no murmur Gastrointestinal/Abdominal: non tender, soft, no organomegaly Back Exam: normal inspection, no CVA tenderness Extremity: normal range of motion, non-tender, normal inspection Neurologic: alert, normal mood/affect Skin Exam: normal color, warm/dry Lymphatic: no adenopathy Departure - Departure Clinical Impression: Weakness Anemia Qualifiers: Anemia type: iron deficiency Iron deficiency anemia type: chronic blood loss Qualified Code(s): D50.0 - Iron deficiency anemia secondary to blood loss (chronic) Time of Disposition: 16:09 Disposition: Admit Patient Condition: Fair Departure Forms: ED Discharge - Pt. Copy, Patient Portal Self Enrollment Referrals: YAAR DAO MD [Primary Care Provider] - 1-2 Weeks Home Medications: Ambulatory Orders Topiramate [Topamax] 200 mg PO BID #0 02/07/13 Spironolactone [Aldactone] 50 mg PO TID 12/06/13 Ascorbic Acid [Vitamin C] 1,000 mg PO BID 08/30/14 Cholecalciferol [Vitamin D3] 400 unit PO DAILY 06/07/17 Imipramine HCl [Imipramine Hydrochloride] 10 mg PO TID 06/07/17 Memantine HCl-Donepezil HCl [Namzaric 28-10 mg] 1 cap PO DAILY 06/07/17 Multiple Vitamins W/ Minerals [Preservision/Lutein] 1 cap PO BID 06/07/17 Oxycodone HCl [Oxycontin] 20 mg PO QID 06/07/17 Sucralfate 1 gm PO TID 06/07/17 Aspirin [Aspirin EC Low Dose] 81 mg PO DAILY 09/23/18 Dexlansoprazole [Dexilant] 60 mg PO DAILY 09/23/18 Fexofenadine HCl [Cheryle Allergy] 180 mg PO DAILY 09/23/18 Iron Heme Polypeptide [Proferrin Es] 12 mg PO DAILY 09/23/18 Ondansetron HCl [Zofran] 4 mg PO TID 09/23/18 Furosemide [Lasix] 80 mg PO BID #0 09/24/18 Potassium Chloride [Micro-K] 40 meq PO TID #360 cap 09/24/18 Decision To Admit - Decistion To Admit Decision to Admit Reason: Admit from ER Decision to Admit Date: 12/23/18 Decision to Admit Time: 16:00
[2018-12-23] MEDS ORDERED: ONDANSETRON INJ 4 MG/2 ML VIAL ONE (17:47)
--- NOTE | 2018-12-23 17:49 | HP ---
SUPERVISING PHYSICIAN: Jarred Sanchez M.D. CHIEF COMPLAINT: Weakness and fatigue. HISTORY OF PRESENT ILLNESS: This is an 83 year-old female patient who has a significant history of iron deficiency anemia. She was actually scheduled for an iron infusion tomorrow and several days ago she had her hemoglobin tested. It was 8.1. When her daughter went over to her house today she was very pale and very weak, so she brought her to the hospital to have her H&H checked and her hemoglobin was 7.7 with hematocrit 26.1. Her electrolytes were basically within normal limits with the exception of her creatinine was 1.8 and her baseline creatinine is about 1.8. I was called for admission to the hospital for a blood transfusion. PAST MEDICAL HISTORY: 1. Congestive heart failure with diastolic in etiology with a 70% ejection fraction per echocardiogram in 2010. 2. Chronic renal insufficiency. 3. Chronic low back pain. 4. Osteoporosis. 5. Rheumatoid arthritis. 6. Migraine headaches. PAST SURGICAL HISTORY: 1. Hysterectomy. 2. Cholecystectomy. 3. Left and right knee replacements. 4. Back surgery times 3. 5. Esophageal dilatation. OUTPATIENT MEDICATIONS: Per the EMR and awaiting verification. ALLERGIES: SULFA, PENICILLIN, CODEINE, DARVON, ULTRAM, DILAUDID, KEFLEX AND MORPHINE. SOCIAL HISTORY: She lives in [place]. She lives at [facility]. She denies any tobacco, ETOH or illicit drug use. REVIEW OF SYSTEMS: Positive for fatigue. Negative for chills or fever. HEENT: Negative for sinus symptoms, ear pain, vision changes or sore throat. RESPIRATORY: Positive for shortness of breath. Negative for coughing or wheezing. CARDIAC: Negative for chest pain, palpitations or tachycardia. GASTROINTESTINAL: Positive for hematochezia. Negative for nausea, vomiting, diarrhea or constipation. SKIN: Negative for lesions or rashes. GENITOURINARY: Negative for hematuria, dysuria or polyuria. MUSCULOSKELETAL: Positive for chronic back pain. Negative for myalgias and arthralgias. NEUROLOGIC: Positive for weakness. Negative for headaches, dizziness or seizures. HEMATOLOGIC: Positive for easy bruising and history of multiple blood transfusions as well as iron deficiency. PHYSICAL EXAMINATION: VITAL SIGNS: Temperature 98.7, heart rate 87, blood pressure 142/68, respiratory rate 20, O2 sat 100% on room air. GENERAL: This is a thin 83 year-old female patient who is lying in her hospital bed. She does appear to be moderately ill and she is very pale. HEENT: Normocephalic and atraumatic. Pupils are equal and reactive. Oropharynx is clear. Her lips are very pale. Her oral mucous membranes are very pale. NECK: Supple without mass. RESPIRATORY: Essentially clear to auscultation. CHEST: There is equal rise and fall of the chest with inspiration and expiration. CARDIOVASCULAR: Regular rate and rhythm. GASTROINTESTINAL: Abdomen is soft, nondistended, non-tender. Bowel sounds are positive. EXTREMITIES: No clubbing, cyanosis or edema. NEUROLOGIC: She is awake, alert and oriented times three. Cranial nerves II- XII are grossly intact. LABORATORY: As per History of Present Illness. ASSESSMENT: 1. Symptomatic anemia with significant history of chronic gastrointestinal bleed requiring multiple blood transfusions. 2. History of angio dysplasia of the colon. She is followed by Dr. Shipman, GI specialist in [place]. 3. Weakness and exhaustion secondary to #1. 4. Congestive heart failure, diastolic in etiology with a 70% ejection fraction per echocardiogram in 2010. 5. Chronic renal insufficiency with a baseline creatinine of about 1.8. Her creatinine today is 1.8. 6. Chronic low back pain on scheduled narcotics. 7. History of rheumatoid arthritis. PLAN: We will place the patient in observation. I have typed and crossed her for 2 units of blood to be transfused over 4 hours each. We will give her 40 mg of Lasix after the first unit. Her home medications will be restarted as soon as they are verified. She has SCDs for DVT prophylaxis and a proton pump inhibitor for ulcer prophylaxis. I will recheck her labs in the morning. Hopefully she can be discharged sometime tomorrow with close followup with Dr. Aaron as well as her GI doctor. Will monitor closely and follow as needed. #[id number] [facility]
[2018-12-23] MEDS ORDERED: SODIUM CHLORIDE 0.9% (FLUSH) 10 ML SYG IV PRN (19:26)
[2018-12-23] MEDS ORDERED: ONDANSETRON INJ 4 MG/2 ML VIAL IV PRN (19:26)
[2018-12-23] MEDS ORDERED: diphenhydrAMINE HCL 50 MG/ML VIAL IV ONE (19:29)
[2018-12-23] MEDS ORDERED: ACETAMINOPHEN 325 MG TAB PO ONE (19:29)
[2018-12-23] MEDS ORDERED: FUROSEMIDE INJ 40 MG/4 ML VIAL IV ONE (19:29)
[2018-12-23] MEDS ORDERED: SODIUM CHLORIDE 0.9% 500ML 500 ML IVS SCH (19:30)
[2018-12-23] MEDS ORDERED: IV SET AND CAP CHANGE INJ INJ SCH (19:30)
[2018-12-23] MEDS ORDERED: TOPIRAMATE 25 MG TAB ONE (19:54)
[2018-12-23] MEDS ORDERED: POTASSIUM CHLORIDE 10 MEQ TAB PO ONE (19:55)
[2018-12-23] MEDS ORDERED: POTASSIUM CHLORIDE 40 MEQ PO SCH (21:00)
[2018-12-23] MEDS ORDERED: IMIPRAMINE HCL PO SCH (21:00)
[2018-12-23] MEDS ORDERED: NON-FORMULARY MEDICATION 1 EA MIS (Memantine Hcl-Donepezil Hcl [Namzaric 28-10 Mg] 1 CAP) PO SCH (21:00)
[2018-12-23] MEDS ORDERED: NON-FORMULARY MEDICATION 1 EA MIS (Topiramate [Topamax] 200 MG) PO SCH (21:00)
[2018-12-23] MEDS: SODIUM CHLORIDE 0.9% (FLUSH) 10 ML SYG IV SCH (21:13)
[2018-12-23] MEDS: SPIRONOLACTONE 25 MG TAB PO SCH (21:14)
[2018-12-23] MEDS: SUCRALFATE 1 GM TAB PO SCH (21:15)
[2018-12-24] MEDS ORDERED: SODIUM CHLORIDE 0.9% 250ML 0 ML ONE (05:21)
[2018-12-24 06:09] VITALS: TEMP 97.9
[2018-12-24] MEDS ORDERED: FUROSEMIDE 40 MG TAB PO SCH (09:00)
[2018-12-24] MEDS ORDERED: PANTOPRAZOLE SODIUM TAB 40 MG PO SCH (09:00)
[2018-12-24] MEDS ORDERED: POTASSIUM CHLORIDE 20 MEQ TAB PO SCH (09:00)
[2018-12-24] MEDS ORDERED: TOPIRAMATE 25 MG TAB PO SCH (09:00)
[2018-12-24] MEDS ORDERED: ASPIRIN (ENTERIC COATED) 81 MG TAB PO SCH (09:00)
[2018-12-24 09:35] VITALS: O2SAT 97
[2018-12-24] MEDS: SPIRONOLACTONE 25 MG TAB PO SCH (10:20)
[2018-12-24] MEDS: SUCRALFATE 1 GM TAB PO SCH (10:20)
[2018-12-24] MEDS: SODIUM CHLORIDE 0.9% (FLUSH) 10 ML SYG IV SCH (10:23)
[2018-12-24 10:54] VITALS: BP 101/64
--- NOTE | 2018-12-24 11:41 | SSS ---
SUPERVISING PHYSICIAN: Jarred Sanchez M.D. DISCHARGE DIAGNOSIS: 1. Symptomatic anemia with significant history of chronic gastrointestinal bleed requiring multiple blood transfusions. 2. History of angio dysplasia of the colon. She is followed by Dr. Shipman, GI specialist in [place]. 3. Weakness and exhaustion secondary to #1. 4. Congestive heart failure, diastolic in etiology with a 70% ejection fraction per echocardiogram in 2010. 5. Chronic renal insufficiency with a baseline creatinine of about 1.8. Her creatinine today is 1.8. 6. Chronic low back pain on scheduled narcotics. 7. History of rheumatoid arthritis. CHIEF COMPLAINT: Weakness and fatigue. HISTORY OF PRESENT ILLNESS: This is an 83 year-old female patient who has a significant history of iron deficiency anemia. She was actually scheduled for an iron infusion tomorrow and several days ago she had her hemoglobin tested. It was 8.1. When her daughter went over to her house today she was very pale and very weak, so she brought her to the hospital to have her H&H checked and her hemoglobin was 7.7 with hematocrit 26.1. Her electrolytes were basically within normal limits with the exception of her creatinine was 1.8 and her baseline creatinine is about 1.8. I was called for admission to the hospital for a blood transfusion. We will place the patient in observation. I have typed and crossed her for 2 units of blood to be transfused over 4 hours each. We will give her 40 mg of Lasix after the first unit. Her home medications will be restarted as soon as they are verified. She has SCDs for DVT prophylaxis and a proton pump inhibitor for ulcer prophylaxis. I will recheck her labs in the morning. Hopefully she can be discharged sometime tomorrow with close followup with Dr. Aaron as well as her GI doctor. Will monitor closely and follow as needed. PAST MEDICAL HISTORY: 1. Congestive heart failure with diastolic in etiology with a 70% ejection fraction per echocardiogram in 2010. 2. Chronic renal insufficiency. 3. Chronic low back pain. 4. Osteoporosis. 5. Rheumatoid arthritis. 6. Migraine headaches. PAST SURGICAL HISTORY: 1. Hysterectomy. 2. Cholecystectomy. 3. Left and right knee replacements. 4. Back surgery times 3. 5. Esophageal dilatation. OUTPATIENT MEDICATIONS: Per the EMR and awaiting verification. ALLERGIES: SULFA, PENICILLIN, CODEINE, DARVON, ULTRAM, DILAUDID, KEFLEX AND MORPHINE. SOCIAL HISTORY: She lives in [place]. She lives at [facility]. She denies any tobacco, ETOH or illicit drug use. REVIEW OF SYSTEMS: Positive for fatigue. Negative for chills or fever. HEENT: Negative for sinus symptoms, ear pain, vision changes or sore throat. RESPIRATORY: Positive for shortness of breath. Negative for coughing or wheezing. CARDIAC: Negative for chest pain, palpitations or tachycardia. GASTROINTESTINAL: Positive for hematochezia. Negative for nausea, vomiting, diarrhea or constipation. SKIN: Negative for lesions or rashes. GENITOURINARY: Negative for hematuria, dysuria or polyuria. MUSCULOSKELETAL: Positive for chronic back pain. Negative for myalgias and arthralgias. NEUROLOGIC: Positive for weakness. Negative for headaches, dizziness or seizures. HEMATOLOGIC: Positive for easy bruising and history of multiple blood transfusions as well as iron deficiency. PHYSICAL EXAMINATION: VITAL SIGNS: Temperature 98.7, heart rate 87, blood pressure 142/68, respiratory rate 20, O2 sat 100% on room air. GENERAL: This is a thin 83 year-old female patient who is lying in her hospital bed. She does appear to be moderately ill and she is very pale. HEENT: Normocephalic and atraumatic. Pupils are equal and reactive. Oropharynx is clear. Her lips are very pale. Her oral mucous membranes are very pale. NECK: Supple without mass. RESPIRATORY: Essentially clear to auscultation. CHEST: There is equal rise and fall of the chest with inspiration and expiration. CARDIOVASCULAR: Regular rate and rhythm. GASTROINTESTINAL: Abdomen is soft, nondistended, non-tender. Bowel sounds are positive. EXTREMITIES: No clubbing, cyanosis or edema. NEUROLOGIC: She is awake, alert and oriented times three. Cranial nerves II- XII are grossly intact. LABORATORY: After her blood transfusion, hemoglobin 10.3, hematocrit 32.9. Metabolic panel showed glucose 81, BUN 26, creatinine 1.8, sodium 140, potassium 4.0, chloride 107, CO2 22, calcium 8.3, protein 6.5, albumin 3.8, total bilirubin 1.4, AST 23, ALT 19, alkaline phosphatase 49. DISCHARGE PLAN: The patient will be discharged home in stable condition. She is to resume her previous medications as well as her previous activity and diet. She is to followup with Dr. Aaron within the next one to two weeks. She is to also followup with her GI doctor as previously scheduled. She is to return to the hospital or followup with Dr. Aaron's office for any problems or complications. DISCHARGE MEDICATIONS: 1. Topamax. 2. Spironolactone. 3. OxyContin. 4. Multivitamins with minerals. 5. Vitamin D3. 6. Sucralfate. 7. Namzaric. 8. Imipramine. 9. Zofran. 10. Dexilant. 11. Vitamin C. 12. Buffered aspirin. 13. Potassium chloride. 14. Furosemide. 15. Cetirizine. #[id number] [facility]
== END 2018-12-24 11:30 | disposition home or self-care (01) ==
LOC: ER 15:12 → INTOOBSV 17:48 → MS 17:48
PROVIDERS: ADMIT Nurse Practitioner Acute Care; ATTEND Nurse Practitioner Acute Care
DX: D50.0 Iron deficiency anemia secondary to blood loss (chronic) (principal); K92.2 Gastrointestinal hemorrhage, unspecified; K55.20 Angiodysplasia of colon without hemorrhage; R53.1 Weakness; R53.83 Other fatigue; I50.32 Chronic diastolic (congestive) heart failure; N18.9 Chronic kidney disease, unspecified; G89.29 Other chronic pain; M54.5 Low back pain; M06.9 Rheumatoid arthritis, unspecified; M81.0 Age-related osteoporosis without current pathological fracture; F03.90 Unspecified dementia, unspecified severity, without behavioral disturbance, psychotic disturbance, mood disturbance, and anxiety; K21.9 Gastro-esophageal reflux disease without esophagitis; Z79.82 Long term (current) use of aspirin; Z79.891 Long term (current) use of opiate analgesic; Z79.899 Other long term (current) drug therapy; Z88.0 Allergy status to penicillin; Z88.2 Allergy status to sulfonamides; Z88.6 Allergy status to analgesic agent; Z88.5 Allergy status to narcotic agent; Z88.8 Allergy status to other drugs, medicaments and biological substances; Z86.73 Personal history of transient ischemic attack (TIA), and cerebral infarction without residual deficits; Z96.653 Presence of artificial knee joint, bilateral
CPT/HCPCS: 96374; 96375 ×2; J1200; J1940; J2405 ×2; J7040; 80048; 80053; 85014; 85018; 36415 ×3; 85025 ×2; P9016 ×2; 86922; 86900; 86901; 86850; 94760 ×2; 99285; G0378

== ENCOUNTER → 2019-01-07 | Outpatient (CLI) | payer MEDICARE, BC | LOC: LAB.O 10:32 | PROVIDERS: ATTEND Family Medicine | DX: N18.3 Chronic kidney disease, stage 3 (moderate) (principal); D64.9 Anemia, unspecified; E87.6 Hypokalemia ==

== ENCOUNTER → 2019-01-26 | Outpatient (CLI) | payer MEDICARE, BC | LOC: LAB.O 18:23 | PROVIDERS: ATTEND Internal Medicine Nephrology | DX: N18.3 Chronic kidney disease, stage 3 (moderate) (principal); D63.1 Anemia in chronic kidney disease; D50.9 Iron deficiency anemia, unspecified; E87.6 Hypokalemia; D64.9 Anemia, unspecified ==

== ENCOUNTER → 2019-03-08 | Outpatient (CLI) | payer MEDICARE, BC | LOC: LAB.O 11:09 | PROVIDERS: ATTEND Family Medicine | DX: E87.6 Hypokalemia (principal); N18.3 Chronic kidney disease, stage 3 (moderate); D64.9 Anemia, unspecified ==

== ENCOUNTER 2019-03-25 21:19 | Emergency (ER) | payer MEDICARE, BC ==
[2019-03-25] MEDS ORDERED: NITROGLYCERIN 0.4 MG 25 EA TAB SL ONE (21:23)
[2019-03-25] MEDS ORDERED: SODIUM CHLORIDE 0.9% (FLUSH) 10 ML SYG IV PRN (21:32)
[2019-03-25] MEDS ORDERED: ONDANSETRON INJ 4 MG/2 ML VIAL IV ONE (21:32)
[2019-03-25] MEDS: NITROGLYCERIN 0.4 MG 25 EA TAB SL ONE ×2 (21:39→21:45)
[2019-03-25 21:53] VITALS: TEMP 98.2
--- NOTE | 2019-03-25 22:08 | RAD ---
EXAM DESCRIPTION: Chest,1 View CLINICAL HISTORY: chest pain COMPARISON: Chest radiographs dated September 09, 2018 and August 27, 2017 TECHNIQUE: Single upright portable frontal view the chest FINDINGS: Calcific atherosclerosis and tortuosity of the thoracic aorta. Cardiac silhouette shows normal heart size. Pulmonary vascularity is within normal limits. Lungs show no confluent infiltrates. Redemonstration of a large hiatal hernia. Costophrenic angles are sharp. There is no pneumothorax. Redemonstration of postsurgical changes of spinal fixation. Breast implants are present. IMPRESSION: 1. No acute cardiopulmonary process. 2. Redemonstration of a large hiatal hernia. 3. Chronic findings as above. Electronically signed by: Jesus Palomino MD 03/25/2019 10:06 PM CDT
--- NOTE | 2019-03-25 22:16 | ED.PDOC ---
History of Present Illness - General Chief Complaint: Chest Pain/NC Stated Complaint: chest pain Time Seen by Provider: 03/25/19 21:54 Exam Limitations: no limitations - History of Present Illness Initial Comments: Ruddy Carreno 83 y/o female came to ER with sharp chest pains radiated to head felt nauseated ,no SOB,no diaphoresis.Has seen trailer park manager in the past and was told that she has small vessel disease. Timing/Duration: 1-3 hours Severity: moderate Location: central Activities at Onset: rest Prior Chest Pain/Cardiac Workup: angina, echocardiography, thallium scan Improving Factors: rest Worsening Factors: nothing Nitro Today/Relief: 0.4 mg x 2, provided by ED, complete relief Aspirin Treatment Today: 81 mg x 4, provided by ED Associated Symptoms: other - see hpi Allergies/Adverse Reactions: Allergies Morphine Allergy (Intermediate, Verified 12/23/18 15:28) Acetaminophen [From Darvocet-N] Allergy (Verified 12/23/18 15:28) Cephalexin [From Keflex] Allergy (Verified 12/23/18 15:28) Codeine Allergy (Verified 12/23/18 15:28) Hydromorphone [From Dilaudid] Allergy (Verified 12/23/18 15:28) Iodine Allergy (Verified 12/23/18 15:28) Midazolam [From Versed] Allergy (Verified 12/23/18 15:28) Penicillin G Allergy (Verified 12/23/18 15:28) Propoxyphene [From Darvocet-N] Allergy (Verified 12/23/18 15:28) Tramadol [From Ultram] Allergy (Verified 12/23/18 15:28) Home Medications: Ambulatory Orders Spironolactone [Aldactone] 50 mg PO TID 12/06/13 Cholecalciferol [Vitamin D3] 400 unit PO DAILY 06/07/17 Imipramine HCl [Imipramine Hydrochloride] 30 mg PO BEDTIME 06/07/17 Multiple Vitamins W/ Minerals [Preservision/Lutein] 1 cap PO BID 06/07/17 Oxycodone HCl [Oxycontin] 20 mg PO Q8HR 06/07/17 Sucralfate 1 gm PO AC 06/07/17 Dexlansoprazole [Dexilant] 60 mg PO DAILY 09/23/18 Ondansetron HCl [Zofran] 4 mg PO TID 09/23/18 Ascorbic Acid [Vitamin C Gummies] 1,000 mg PO BID 12/23/18 Aspirin (Buffered) 325 mg [Bufferin 325 mg] 1 ea PO BEDTIME 12/23/18 Furosemide 80 mg PO 0500,1700 12/23/18 Potassium Chloride [Potassium Chloride ER] 10 meq PO 0800,1900 12/23/18 Dexlansoprazole [Dexilant] 60 mg PO DAILY 03/25/19 Imipramine HCl 10 mg PO BEDTIME 03/25/19 Memantine HCl-Donepezil HCl [Namzaric 28-10 mg] 1 cap PO DAILY 03/25/19 Multiple Vitamins W/ Minerals [Preservision Areds] 1 cap PO DAILY 03/25/19 Topiramate [Topamax] 200 mg PO BID 03/25/19 Nitroglycerin 0.4 mg Tab [Nitrostat] 0.4 ea SL .Q5M PRN #1 bottle 03/26/19 Review of Systems - Review of Systems Constitutional: States: no symptoms reported EENTM: States: no symptoms reported Respiratory: States: no symptoms reported Cardiology: States: see HPI Gastrointestinal/Abdominal: States: no symptoms reported Genitourinary: States: no symptoms reported Musculoskeletal: States: no symptoms reported Skin: States: no symptoms reported Neurological: States: no symptoms reported Endocrine: States: no symptoms reported All other Systems: Reviewed and Negative, No Change from Baseline Past Medical History (General) - Patient Medical History Hx Seizures: No Hx Stroke: Yes Hx Dementia: Yes Hx Asthma: No Hx of COPD: No Hx Cardiac Disorders: Yes - small vessel disease Hx Congestive Heart Failure: Yes - hx Hx Pacemaker: No Hx Hypertension: No Hx Thyroid Disease: No Hx Diabetes: No Hx Gastroesophageal Reflux: Yes Hx Renal Disease: Yes Hx Cancer: No Hx of HIV: No Hx Hepatitis C: No Hx MRSA: No Surgical History: cholecystectomy, Hysterectomy, other - hysterectomy - Vaccination History Hx Tetanus, Diphtheria Vaccination: No Hx Influenza Vaccination: No Hx Pneumococcal Vaccination: No Immunizations Up to Date: No - Social History Hx Tobacco Use: No Hx Chewing Tobacco Use: No Hx Alcohol Use: No Hx Substance Use: No Hx Substance Use Treatment: No Hx Depression: No Hx Physical Abuse: No Hx Emotional Abuse: No Hx Suspected Abuse: No - Activities of Daily Living Correction/Assisted Living (if applicable):: [facility] - Female History Patient : No Family Medical History - Family History Mother Living Status: Hx Family Stroke: Yes Hx Family Diabetes: Yes - mom Hx Family;Other: COPD Brother Living Status: Hx Family Cancer: Yes Physical Exam - Physical Exam General Appearance: Alert, Comfortable, No apparent distress Eyes, Ears, Nose, Throat Exam: normal ENT inspection, TMs normal Neck: full range of motion, supple, normal inspection Respiratory: chest non-tender, lungs clear, normal breath sounds, no respiratory distress Cardiovascular/Chest: normal peripheral pulses, regular rate, rhythm, no gallop, no murmur Peripheral Pulses: radial,right: 2+, radial,left: 2+ Gastrointestinal/Abdominal: non tender, soft, no organomegaly Neurologic: alert, oriented x 3 Skin Exam: normal color, warm/dry Progress - Progress Progress: 03/25/19 22:21 Vital Signs - 8 hr 03/25/19 03/25/19 03/25/19 21:31 21:32 21:45 Temperature 98.2 F 98.2 F 98.2 F Pulse Rate 82 81 82 Pulse Rate [ 84 Apical] Pulse Rate [ 96 H 81 81 right] Respiratory 18 18 18 Rate Blood Pressure 161/72 138/75 139/66 [left] O2 Sat by Pulse 98 97 95 Oximetry - Results/Orders Results/Orders: Recommended hospital OBS but stating wants to go home if test were negative for myocardial injury 03/25/19 21:32 IV Care:Saline Lock per Protoc QSHIFT Telemetry .ONCE Sodium Chloride 0.9% (Flush) [Saline Flush Syringe] 10 ml IV PRN PRN EKG Stat Pulse Ox Stat 03/26/19 00:30 EKG STAT Laboratory Results - last 24 hr 03/25/19 03/26/19 22:05 00:33 WBC 4.9 RBC 4.41 Hgb 12.1 Hct 38.1 MCV 86.4 MCH 27.4 MCHC 31.7 L RDW 20.5 H Plt Count 160 MPV 8.6 Absolute Neuts (auto) 2.90 Absolute Lymphs (auto) 1.30 Absolute Monos (auto) 0.40 Absolute Eos (auto) 0.20 Absolute Basos (auto) 0.00 Neutrophils % 59.6 Lymphocytes % 27.2 Monocytes % 8.3 Eosinophils % 4.2 Basophils % 0.7 PT 9.9 INR 0.99 PTT (SP) 20.6 L Sodium 140 Potassium 3.8 Chloride 109 Carbon Dioxide 22 Anion Gap 12.8 BUN 25 H Creatinine 1.75 H BUN/Creatinine Ratio 14.3 Random Glucose 105 Serum Osmolality 284.2 Calcium 7.8 L Magnesium 2.2 Total Bilirubin 0.3 Direct Bilirubin < 0.1 Indirect Bilirubin 0.2 AST 20 ALT 19 Alkaline Phosphatase 97 Creatine Kinase 109 CK-MB (CK-2) 4.7 H* CK-MB (CK-2) % 4.31 H Troponin I < 0.02 < 0.02 B-Natriuretic Peptide 19.2 Serum Total Protein 6.9 Albumin 3.8 Discuss all test results with patient offered hospital obs but prefer to stay home - EKG/XRAY/CT EKG: Sinus, no ST T wave changes Comments: HR-75 XRAY: chest - hiatal hernia no other abnormalities - Additional EKG/XRAY/Consults EKG #2: Sinus, no ST T wave changes Comments: HR-81 Departure - Departure Clinical Impression: Renal insufficiency, mild Chest pain Qualifiers: Chest pain type: unspecified Qualified Code(s): R07.9 - Chest pain, unspecified Time of Disposition: : Disposition: Discharge to Home or Self Care Departure Forms: ED Discharge - Pt. Copy, Patient Portal Self Enrollment Instructions: DI for Chest Pain Referrals: YARA DAO MD [Primary Care Provider] - 1-2 Weeks Prescriptions: Nitroglycerin 0.4 mg Tab [Nitrostat] 0.4 ea SL .Q5M PRN #1 bottle PRN Reason: Chest Pain Home Medications: Ambulatory Orders Spironolactone [Aldactone] 50 mg PO TID 12/06/13 Cholecalciferol [Vitamin D3] 400 unit PO DAILY 06/07/17 Imipramine HCl [Imipramine Hydrochloride] 30 mg PO BEDTIME 06/07/17 Multiple Vitamins W/ Minerals [Preservision/Lutein] 1 cap PO BID 06/07/17 Oxycodone HCl [Oxycontin] 20 mg PO Q8HR 06/07/17 Sucralfate 1 gm PO AC 06/07/17 Dexlansoprazole [Dexilant] 60 mg PO DAILY 09/23/18 Ondansetron HCl [Zofran] 4 mg PO TID 09/23/18 Ascorbic Acid [Vitamin C Gummies] 1,000 mg PO BID 12/23/18 Aspirin (Buffered) 325 mg [Bufferin 325 mg] 1 ea PO BEDTIME 12/23/18 Furosemide 80 mg PO 0500,1700 12/23/18 Potassium Chloride [Potassium Chloride ER] 10 meq PO 0800,1900 12/23/18 Dexlansoprazole [Dexilant] 60 mg PO DAILY 03/25/19 Imipramine HCl 10 mg PO BEDTIME 03/25/19 Memantine HCl-Donepezil HCl [Namzaric 28-10 mg] 1 cap PO DAILY 03/25/19 Multiple Vitamins W/ Minerals [Preservision Areds] 1 cap PO DAILY 03/25/19 Topiramate [Topamax] 200 mg PO BID 03/25/19 Nitroglycerin 0.4 mg Tab [Nitrostat] 0.4 ea SL .Q5M PRN #1 bottle 03/26/19 Additional Instructions: Continue with all home medications;Need to take Baby Apirin-81 mg daily;Call -trailer park manager in am for appointment;Return to Emergency Room as ne eded;
[2019-03-26] MEDS ORDERED: NITROGLYCERIN 0.2 MG/HR PATCH TD ONE (01:30)
[2019-03-26 01:52] VITALS: O2SAT 95
[2019-03-26 02:16] VITALS: BP 114/60
== END 2019-03-26 02:17 | disposition home or self-care (01) ==
LOC: ER 21:19
DX: R07.9 Chest pain, unspecified (principal); N18.9 Chronic kidney disease, unspecified; F03.90 Unspecified dementia, unspecified severity, without behavioral disturbance, psychotic disturbance, mood disturbance, and anxiety; K21.9 Gastro-esophageal reflux disease without esophagitis; I50.9 Heart failure, unspecified; I51.9 Heart disease, unspecified; Z86.73 Personal history of transient ischemic attack (TIA), and cerebral infarction without residual deficits; Z79.82 Long term (current) use of aspirin; Z79.899 Other long term (current) drug therapy; Z88.8 Allergy status to other drugs, medicaments and biological substances; Z88.0 Allergy status to penicillin; Z88.5 Allergy status to narcotic agent; Z91.041 Radiographic dye allergy status; Z88.6 Allergy status to analgesic agent
CPT/HCPCS: 36415; 71045; 80048; 80076; 82550; 82553; 83880; 84484; 85025; 85610; 85730; 93005; J2405

== ENCOUNTER → 2019-04-28 | Outpatient (CLI) | payer MEDICARE, BC | LOC: LAB.O 11:15 | PROVIDERS: ATTEND Family Medicine | DX: E87.6 Hypokalemia (principal); N18.3 Chronic kidney disease, stage 3 (moderate); D64.9 Anemia, unspecified ==

== ENCOUNTER → 2019-05-12 | Outpatient (CLI) | payer MEDICARE, BC | LOC: LAB.O 09:10 | PROVIDERS: ATTEND Internal Medicine Nephrology | DX: N18.3 Chronic kidney disease, stage 3 (moderate) (principal); D63.1 Anemia in chronic kidney disease; D50.9 Iron deficiency anemia, unspecified; D64.9 Anemia, unspecified; N25.81 Secondary hyperparathyroidism of renal origin; E87.8 Other disorders of electrolyte and fluid balance, not elsewhere classified; M10.9 Gout, unspecified ==

== ENCOUNTER → 2019-05-25 | Outpatient (CLI) | payer MEDICARE, BC ==
--- NOTE | 2019-05-26 08:08 | CT ---
COMPARISON: 03/25/2019 TECHNIQUE: Volumetric CT data acquisition of the chest was obtained without intravenous contrast material. Oral contrast material was not used. Axial, sagittal and coronal reconstructions were obtained. FINDINGS: CHEST: Thyroid gland is unremarkable. No axillary adenopathy. Bilateral breast prostheses. No pericardial effusion. Coronary artery and aortic valvular calcifications. The visualized upper abdomen is unremarkable. Pneumobilia. Large hiatal hernia. There is organoaxial rotation of the herniated stomach. No mediastinal adenopathy. Atherosclerotic plaque in the thoracic aorta. No pneumothorax. No pleural effusion. Calcified hilar lymph nodes. Small scattered calcified granulomas. No focal consolidation or suspicious pulmonary nodule. Accentuated thoracic kyphosis. Extensive post surgical changes involving the visualized lower lumbar spine. No acute or suspicious osseous abnormality. IMPRESSION: 1. No focal consolidation or suspicious pulmonary nodule. 2. Large hiatal hernia. Electronically signed by: Ramakrishna Richard MD 05/26/2019 8:05 AM CDT
== END ==
LOC: CT 13:30
PROVIDERS: ATTEND Family Medicine
DX: K44.9 Diaphragmatic hernia without obstruction or gangrene (principal); R22.2 Localized swelling, mass and lump, trunk

== ENCOUNTER → 2019-06-01 | Outpatient (CLI) | payer MEDICARE, BC | LOC: LAB.O 09:41 | PROVIDERS: ATTEND Family Medicine | DX: E87.6 Hypokalemia (principal); E78.5 Hyperlipidemia, unspecified; D64.9 Anemia, unspecified; N18.3 Chronic kidney disease, stage 3 (moderate); R53.82 Chronic fatigue, unspecified ==

== ENCOUNTER → 2019-06-19 | Outpatient (CLI) | payer MEDICARE, BC | LOC: GMATM 13:15 | PROVIDERS: ATTEND Nurse Practitioner Family | DX: N30.00 Acute cystitis without hematuria (principal) ==

== ENCOUNTER → 2019-07-05 | Outpatient (CLI) | payer MEDICARE, BC | LOC: LAB.O 10:54 | PROVIDERS: ATTEND Family Medicine | DX: N18.3 Chronic kidney disease, stage 3 (moderate) (principal); D64.9 Anemia, unspecified; E87.6 Hypokalemia ==

== ENCOUNTER → 2019-07-17 | Outpatient (CLI) | payer MEDICARE, BC | LOC: LAB.O 11:32 | PROVIDERS: ATTEND Family Medicine | DX: E87.5 Hyperkalemia (principal); N18.3 Chronic kidney disease, stage 3 (moderate); D64.9 Anemia, unspecified ==

== ENCOUNTER → 2019-08-13 | Outpatient (CLI) | payer MEDICARE, BC | LOC: LAB.O 13:24 | PROVIDERS: ATTEND Family Medicine | DX: N18.4 Chronic kidney disease, stage 4 (severe) (principal) ==

== ENCOUNTER → 2019-09-10 | Outpatient (CLI) | payer MEDICARE, BC | LOC: LAB.O 13:05 | PROVIDERS: ATTEND Family Medicine | DX: N18.4 Chronic kidney disease, stage 4 (severe) (principal); D64.9 Anemia, unspecified; R53.82 Chronic fatigue, unspecified; D50.9 Iron deficiency anemia, unspecified; D63.1 Anemia in chronic kidney disease; E78.5 Hyperlipidemia, unspecified; E87.8 Other disorders of electrolyte and fluid balance, not elsewhere classified ==

== ENCOUNTER 2019-09-12 17:23 | Emergency (ER) | payer MEDICARE, BC ==
[2019-09-12 17:36] VITALS: TEMP 99.2
--- NOTE | 2019-09-12 18:12 | RAD ---
EXAM: XR Chest, 1 View CLINICAL HISTORY: The patient is 83 years old and is Female; chest pain 1 hour, hx anemia TECHNIQUE: Frontal view of the chest. COMPARISON: Chest CT from 05/25/2019 FINDINGS: LUNGS: Unremarkable. Slight increased density projecting over the lateral aspect of the left lung base is favored to be artifactual, related to overlying soft tissue. No consolidation. PLEURAL SPACE: Unremarkable. No pneumothorax. HEART: No significant enlargement of the cardiac silhouette. MEDIASTINUM: Large hiatal hernia. BONES/JOINTS: Bilateral spinal rods in place. Severe thoracolumbar scoliosis. No obvious acute fracture. SOFT TISSUES: Partially calcified bilateral breast implants. IMPRESSION: 1. No acute findings visualized in the chest. 2. Large hiatal hernia. Electronically signed by: Ximena Tejada MD 09/12/2019 6:11 PM CDT
[2019-09-12] MEDS ORDERED: LIDOCAINE HCL 2% (MOUTH-THROAT) 15 ML UD ONE (18:28)
[2019-09-12] MEDS ORDERED: ALUM & MAG HYDROX-SIMETHICONE 30 ML UD ONE (18:28)
[2019-09-12] MEDS: SODIUM CHLORIDE 0.9% 1000ML 500 ML IVS ONE (18:33)
[2019-09-12] MEDS: ALUM & MAG HYDROX-SIMETHICONE 30 ML, LIDOCAINE VISCOUS 2% 15 ML PO ONE ×2 (18:34)
[2019-09-12] MEDS: NITROGLYCERIN 2% 1 GM UD TOP ONE (19:11)
--- NOTE | 2019-09-12 19:57 | ED.PDOC ---
History of Present Illness - General Chief Complaint: Cardiovascular Problem Stated Complaint: Chest pain, SOB and nausea Time Seen by Provider: 09/12/19 17:31 Source: patient, family Exam Limitations: no limitations - History of Present Illness Initial Comments: the patient is an 83-year-old female presenting to the emergency room secondary to chest pain that started about an hour prior to arrival. She did receive 2 nitroglycerin at the senior living before coming here which did seem to help a little bit. No syncope or near syncope. She does have known coronary artery disease with extensive microvascular ischemia. She does have frequent chest pain and does frequently take nitroglycerin. She does see a restorative coordinator in the [facility] who is stating that there are no further interventions that can be done for her as far as her coronary arteries to help. Chest pain has gradually lessened since her arrival here. He did improve significantly with a half inch of Nitropaste. The patient is pleasant and cooperative. She does also have intermittent chest pains from her hiatal hernia. The pain still very similar to her. It is difficult to tell at this time which one is bothering her. family is present here and are medically knowledgeable. They are familiar with these episodes. Timing/Duration: 1 hour Severity: mild Improving Factors: medication Worsening Factors: nothing Associated Symptoms: chest pain Allergies/Adverse Reactions: Allergies Morphine Allergy (Intermediate, Verified 12/23/18 15:28) Acetaminophen [From Darvocet-N] Allergy (Verified 12/23/18 15:28) Cephalexin [From Keflex] Allergy (Verified 12/23/18 15:28) Codeine Allergy (Verified 12/23/18 15:28) Gabapentin Allergy (Verified 09/12/19 17:38) Hydromorphone [From Dilaudid] Allergy (Verified 12/23/18 15:28) Iodine Allergy (Verified 12/23/18 15:28) Midazolam [From Versed] Allergy (Verified 12/23/18 15:28) Penicillin G Allergy (Verified 12/23/18 15:28) Propoxyphene [From Darvocet-N] Allergy (Verified 12/23/18 15:28) Tramadol [From Ultram] Allergy (Verified 12/23/18 15:28) Home Medications: Ambulatory Orders Spironolactone [Aldactone] 50 mg PO TID 12/06/13 Cholecalciferol [Vitamin D3] 400 unit PO DAILY 06/07/17 Imipramine HCl [Imipramine Hydrochloride] 30 mg PO BEDTIME 06/07/17 Multiple Vitamins W/ Minerals [Preservision/Lutein] 1 cap PO BID 06/07/17 Oxycodone HCl [Oxycontin] 20 mg PO Q8HR 06/07/17 Sucralfate 1 gm PO AC 06/07/17 Dexlansoprazole [Dexilant] 60 mg PO DAILY 09/23/18 Ondansetron HCl [Zofran] 4 mg PO TID 09/23/18 Ascorbic Acid [Vitamin C Gummies] 1,000 mg PO BID 12/23/18 Aspirin (Buffered) 325 mg [Bufferin 325 mg] 1 ea PO BEDTIME 12/23/18 Furosemide 80 mg PO 0500,1700 12/23/18 Potassium Chloride [Potassium Chloride ER] 10 meq PO 0800,1900 12/23/18 Dexlansoprazole [Dexilant] 60 mg PO DAILY 03/25/19 Imipramine HCl 10 mg PO BEDTIME 03/25/19 Memantine HCl-Donepezil HCl [Namzaric 28-10 mg] 1 cap PO DAILY 03/25/19 Multiple Vitamins W/ Minerals [Preservision Areds] 1 cap PO DAILY 03/25/19 Topiramate [Topamax] 200 mg PO BID 03/25/19 Nitroglycerin 0.4 mg Tab [Nitrostat] 0.4 ea SL .Q5M PRN #1 bottle 03/26/19 Nitroglycerin [Nitrostat] 0.4 mg SL Q5MIN PRN #1 bottle 09/12/19 Review of Systems - Review of Systems Constitutional: States: no symptoms reported EENTM: States: no symptoms reported Respiratory: States: no symptoms reported Cardiology: States: chest pain Gastrointestinal/Abdominal: States: no symptoms reported Genitourinary: States: no symptoms reported Musculoskeletal: States: no symptoms reported Skin: States: no symptoms reported Neurological: States: no symptoms reported - she does have chronic dementia Endocrine: States: no symptoms reported All other Systems: No Change from Baseline Past Medical History (General) - Patient Medical History Hx Seizures: No Hx Stroke: Yes - 1987 Hx Dementia: Yes Hx Asthma: No Hx of COPD: No Hx Cardiac Disorders: Yes - Small vessel disease Hx Congestive Heart Failure: Yes Hx Pacemaker: No Hx Hypertension: Yes Hx Thyroid Disease: No Hx Diabetes: No Hx Gastroesophageal Reflux: Yes Hx Renal Disease: Yes Hx Cancer: No Hx of HIV: No Hx Hepatitis C: No Hx MRSA: No Surgical History: cholecystectomy, Hysterectomy, other - Vaccination History Hx Tetanus, Diphtheria Vaccination: No Hx Influenza Vaccination: Yes Hx Pneumococcal Vaccination: Yes Immunizations Up to Date: Yes - Social History Hx Tobacco Use: No Hx Chewing Tobacco Use: No Hx Alcohol Use: No Hx Substance Use: No Hx Substance Use Treatment: No Hx Depression: No Hx Physical Abuse: No Hx Emotional Abuse: No Hx Suspected Abuse: No - Activities of Daily Living [facility]/Assisted Living (if applicable):: [facility] - Female History Patient is a Female of Child Bearing Age (10 -59 yrs old): No Patient : No Family Medical History - Family History Mother Living Status: Hx Family Stroke: Yes Hx Family Diabetes: Yes - mom Hx Family;Other: COPD Brother Living Status: Hx Family Cancer: Yes Physical Exam - Physical Exam General Appearance: Alert, Comfortable, No apparent distress Eye Exam: bilateral normal Ears, Nose, Throat: hearing grossly normal, normal pharynx Neck: full range of motion, supple Respiratory: lungs clear, normal breath sounds, no respiratory distress, no accessory muscle use Cardiovascular/Chest: normal peripheral pulses, regular rate, rhythm, no edema Peripheral Pulses: radial,right: 2+, radial,left: 2+ Gastrointestinal/Abdominal: non tender, soft Rectal Exam: deferred Back Exam: no CVA tenderness, no vertebral tenderness Extremity: non-tender, normal inspection, no pedal edema, normal capillary refill Neurologic: keyboard operator II-XII nml as tested, alert, normal mood/affect, oriented x 3 Skin Exam: normal color Comments: Vital Signs - 24 hr 09/12/19 09/12/19 17:26 17:27 Temperature 99.2 F Pulse Rate [ 107 H 107 H Monitor] Respiratory 16 16 Rate Blood Pressure 137/72 [L brachial] O2 Sat by Pulse 95 Oximetry Progress - Progress Progress: 09/12/19 20:01 the patient is an 83-year-old female presenting to the emergency room with chest pain. Most likely etiologies are stable angina versus discomfort from her hiatal hernia. The patient is now chest pain-free. Initial set of cardiac enzymes is negative. The patient is not a candidate for further cardiology intervention as per her and her family. The patient is desirous of going home and family is comfortable with her going home. patient and family are not interested in repeating cardiac enzymes. This is reasonable given her medical history. We will leave a half inch of Nitropaste on board for overnight. She will be written for a new prescription of the nitroglycerin tablets. Vital signs are stable and patient is chest pain-free. She needs to follow back up with her primary care doctor later this coming week. Obviously return to the emergency room for any uncontrolled chest pain or any significant deterioration otherwise. family is in the medical field and does understand the risks. ER warnings were given. usama white [id number] 09/12/19 20:04 - Results/Orders Results/Orders: 09/12/19 17:45 EKG STAT normal sinus rhythm at 93 bpm. Normal axis. Slow R-wave progression. No ST segment or T-wave changes indicative of acute ischemia. Normal QT interval. Chest x-ray shows the hiatal hernia but otherwise no evidence of any acute pathology. No definitive pneumonia. She does have some atelectasis. Laboratory Results - last 24 hr 09/12/19 09/12/19 09/12/19 17:45 17:45 17:45 WBC 8.0 RBC 4.12 L Hgb 9.1 L Hct 30.5 L MCV 73.9 L MCH 22.1 L MCHC 29.9 L RDW 16.3 H Plt Count 258 MPV 9.1 Absolute Neuts (auto) 5.60 Absolute Lymphs (auto) 1.40 Absolute Monos (auto) 0.70 Absolute Eos (auto) 0.30 Absolute Basos (auto) 0.10 Neutrophils % 69.9 Lymphocytes % 16.9 L Monocytes % 8.7 Eosinophils % 3.8 Basophils % 0.7 PT INR PTT (SP) Sodium 136 Potassium 5.0 Chloride 92 L Carbon Dioxide 26 Anion Gap 23.0 H BUN 50 H Creatinine 2.77 H BUN/Creatinine Ratio 18.1 Random Glucose 130 H Serum Osmolality 287.0 Calcium 9.9 Magnesium 2.5 Total Bilirubin 0.5 AST 23 ALT 26 Alkaline Phosphatase 73 Creatine Kinase 63 CK-MB (CK-2) 4.0 CK-MB (CK-2) % Not Reportable Troponin I 0.02 B-Natriuretic Peptide 34.9 Serum Total Protein 7.3 Albumin 4.1 Globulin 3.2 Albumin/Globulin Ratio 1.3 Amylase 80 09/12/19 17:55 WBC RBC Hgb Hct MCV MCH MCHC RDW Plt Count MPV Absolute Neuts (auto) Absolute Lymphs (auto) Absolute Monos (auto) Absolute Eos (auto) Absolute Basos (auto) Neutrophils % Lymphocytes % Monocytes % Eosinophils % Basophils % PT 10.3 INR 1.03 PTT (SP) 25.0 Sodium Potassium Chloride Carbon Dioxide Anion Gap BUN Creatinine BUN/Creatinine Ratio Random Glucose Serum Osmolality Calcium Magnesium Total Bilirubin AST ALT Alkaline Phosphatase Creatine Kinase CK-MB (CK-2) CK-MB (CK-2) % Troponin I B-Natriuretic Peptide Serum Total Protein Albumin Globulin Albumin/Globulin Ratio Amylase Departure - Departure Clinical Impression: Stable angina, Hiatal hernia Disposition: Discharge to SNF Condition: Fair Departure Forms: ED Discharge - Pt. Copy, Patient Portal Self Enrollment Diet: regular diet Activity: increase activity as tolerated Referrals: YARA DAO MD [Primary Care Provider] - 1-2 Weeks Prescriptions: Nitroglycerin [Nitrostat] 0.4 mg SL Q5MIN PRN #1 bottle PRN Reason: Chest Pain Home Medications: Ambulatory Orders Spironolactone [Aldactone] 50 mg PO TID 12/06/13 Cholecalciferol [Vitamin D3] 400 unit PO DAILY 06/07/17 Imipramine HCl [Imipramine Hydrochloride] 30 mg PO BEDTIME 06/07/17 Multiple Vitamins W/ Minerals [Preservision/Lutein] 1 cap PO BID 06/07/17 Oxycodone HCl [Oxycontin] 20 mg PO Q8HR 06/07/17 Sucralfate 1 gm PO AC 06/07/17 Dexlansoprazole [Dexilant] 60 mg PO DAILY 09/23/18 Ondansetron HCl [Zofran] 4 mg PO TID 09/23/18 Ascorbic Acid [Vitamin C Gummies] 1,000 mg PO BID 12/23/18 Aspirin (Buffered) 325 mg [Bufferin 325 mg] 1 ea PO BEDTIME 12/23/18 Furosemide 80 mg PO 0500,1700 12/23/18 Potassium Chloride [Potassium Chloride ER] 10 meq PO 0800,1900 12/23/18 Dexlansoprazole [Dexilant] 60 mg PO DAILY 03/25/19 Imipramine HCl 10 mg PO BEDTIME 03/25/19 Memantine HCl-Donepezil HCl [Namzaric 28-10 mg] 1 cap PO DAILY 03/25/19 Multiple Vitamins W/ Minerals [Preservision Areds] 1 cap PO DAILY 03/25/19 Topiramate [Topamax] 200 mg PO BID 03/25/19 Nitroglycerin 0.4 mg Tab [Nitrostat] 0.4 ea SL .Q5M PRN #1 bottle 03/26/19 Nitroglycerin [Nitrostat] 0.4 mg SL Q5MIN PRN #1 bottle 09/12/19 Additional Instructions: the patient is an 83-year-old female presenting to the emergency room with chest pain. Most likely etiologies are stable angina versus discomfort from her hiatal hernia. The patient is now chest pain-free. Initial set of cardiac enzymes is negative. The patient is not a candidate for further cardiology intervention as per her and her family. The patient is desirous of going home and family is comfortable with her going home. We will leave a half inch of Nitropaste on board for overnight. She will be written for a new prescription of the nitroglycerin tablets. Vital signs are stable and patient is chest pain-free. She needs to follow back up with her primary care doctor later this coming week. Obviously return to the emergency room for any uncontrolled chest pain or any significant deterioration otherwise. ER warnings were given.
[2019-09-12 20:14] VITALS: BP 132/60; O2SAT 99
== END 2019-09-12 20:20 ==
LOC: ER 17:23
DX: I20.9 Angina pectoris, unspecified (principal); K44.9 Diaphragmatic hernia without obstruction or gangrene; F03.90 Unspecified dementia, unspecified severity, without behavioral disturbance, psychotic disturbance, mood disturbance, and anxiety; I51.9 Heart disease, unspecified; I50.9 Heart failure, unspecified; N18.9 Chronic kidney disease, unspecified; I13.0 Hypertensive heart and chronic kidney disease with heart failure and stage 1 through stage 4 chronic kidney disease, or unspecified chronic kidney disease; K21.9 Gastro-esophageal reflux disease without esophagitis; Z86.73 Personal history of transient ischemic attack (TIA), and cerebral infarction without residual deficits; Z79.899 Other long term (current) drug therapy; Z79.82 Long term (current) use of aspirin; Z88.5 Allergy status to narcotic agent; Z88.8 Allergy status to other drugs, medicaments and biological substances; Z88.0 Allergy status to penicillin; Z91.041 Radiographic dye allergy status; Z88.6 Allergy status to analgesic agent
CPT/HCPCS: 71045; 80053; 82150; 82550; 82553; 83735; 83880; 84484; 85025; 85610; 85730; 93005; J7030

== ENCOUNTER → 2019-09-16 | Outpatient (CLI) | payer MEDICARE, BC | LOC: LAB.O 11:52 | PROVIDERS: ATTEND Family Medicine | DX: N18.4 Chronic kidney disease, stage 4 (severe) (principal) ==

== ENCOUNTER → 2019-12-06 | Outpatient (CLI) | payer MEDICARE, BC | LOC: LAB.O 15:20 | PROVIDERS: ATTEND Family Medicine | DX: N18.9 Chronic kidney disease, unspecified (principal); D63.1 Anemia in chronic kidney disease ==

== ENCOUNTER → 2020-02-23 | Outpatient (CLI) | payer MEDICARE, BC | LOC: BFHH 15:36 | PROVIDERS: ATTEND Family Medicine | DX: N18.4 Chronic kidney disease, stage 4 (severe) (principal); I50.42 Chronic combined systolic (congestive) and diastolic (congestive) heart failure ==

== ENCOUNTER 2020-03-14 19:38 | Observation (INO) | payer MEDICARE, BC ==
[2020-03-14] MEDS ORDERED: SODIUM CHLORIDE 0.9% (FLUSH) 10 ML SYG IV PRN ×2 (19:48→23:36)
--- NOTE | 2020-03-14 20:23 | CT ---
PROCEDURE: CT Head Without Intravenous Contrast CLINICAL INDICATION: The patient is 84 years years old, Female; stroke like symptoms TECHNIQUE: Axial computed tomography images of the head/brain without intravenous contrast. Sagittal and coronal reformatted images were created and reviewed. This CT exam was performed using one or more of the following dose reduction techniques: automated exposure control, adjustment of the mA and/or kV according to patient size, and/or use of iterative reconstruction technique. COMPARISON: No relevant prior studies available. FINDINGS: BRAIN: No intracerebral or extracerebral mass lesions are identified. Mohan/white matter distinction is maintained. There is no evidence of intracranial hemorrhage. There is no evidence of acute territorial infarct. (It should be noted that acute infarct may not be discernible in the first [address] ) Small hypodensity in the right lentiform nucleus is consistent with a small lacunar infarct probably subacute or chronic. There is moderate patchy hypodensity of the cerebral white matter which is nonspecific but likely secondary to chronic microvascular ischemic changes in end vessel distributions. MIDLINE SHIFT: There is no shift of the midline structures. VENTRICLES: There is prominence of the ventricles, sulci, cerebellar folia, and basilar cisterns consistent with volume loss. BONES/JOINTS: There is no acute calvarial abnormality or other discernible acute osseous abnormalities. Benign hyperostosis frontalis is present. SOFT TISSUES: Unremarkable. VASCULATURE: There is atherosclerotic calcification in the siphons of the bilateral internal carotid arteries. SINUSES: The visualized paranasal sinuses are clear with the exception of very minimal mucoperiosteal thickening in the ethmoid sinuses. MASTOID AIR CELLS: The mastoids and middle ears are clear. ORBITS: There are senescent changes in the orbits bilaterally. OTHER FINDINGS: Calcific densities surround the dens resulting in a "crowned dens" appearance as may occur with hydroxyapatite deposition disease. IMPRESSION: 1. No acute intracranial abnormality. (It should be noted that acute infarct may not be discernible in the first [address]) a follow-up head ct or mri is recommended if neurologic symptoms persist. 2. Volume loss. 3. ASVD. 4. Nonspecific moderate white matter lucency compatible with deep white matter ischemic changes versus demyelination versus gliosis. 5. Remainder of findings as discussed above. Electronically signed by: Bernarda Singer MD 03/14/2020 8:22 PM CDT
--- NOTE | 2020-03-14 20:25 | RAD ---
EXAM DESCRIPTION: Chest,1 View CLINICAL HISTORY: 84 years Female stroke like symptoms COMPARISON: September 28, 2019. TECHNIQUE: AP view of the chest was obtained. FINDINGS: Cardiac silhouette is enlarged. Central vessels are increased and indistinct. No infiltrates or effusions seen. No consolidation. No pneumothorax. Extensive spinal fixation thoracolumbar and lumbar spine. Dextroscoliosis lumbar spine. Surgical clips right upper abdomen. IMPRESSION: Enlarged heart with moderate central congestion. No infiltrates seen. Electronically signed by: Vicky Hendricks MD 03/14/2020 8:23 PM CDT
--- NOTE | 2020-03-14 21:28 | ED.PDOC ---
History of Present Illness - General Chief Complaint: Neuro Symptoms/Deficits Stated Complaint: possible stoke Time Seen by Provider: 03/14/20 19:48 Source: patient, RN notes reviewed, Vital Signs reviewed, family - Daughter Exam Limitations: no limitations - History of Present Illness Initial Comments: Patient is an 84-year-old white female who presents with complaints of acute onset of right-sided weakness 1/2-hour prior to arrival. Patient has a history of strokes. Patient noted weakness in her right leg and right arm. Nothing seems to make it better or worse. Patient denies any chest pain, shortness of breath, nausea, vomiting, diarrhea, dizziness or blurry vision. Patient also complains of numbness in her right arm and right leg. Per the daughter she also had a right facial droop. The symptoms have improved markedly since arrival. Timing/Duration: 1/2 hour Severity: moderate Improving Factors: nothing Worsening Factors: nothing Associated Symptoms: paresthesia, weakness Allergies/Adverse Reactions: Allergies Morphine Allergy (Intermediate, Verified 12/23/18 15:28) Acetaminophen [From Darvocet-N] Allergy (Verified 12/23/18 15:28) Cephalexin [From Keflex] Allergy (Verified 12/23/18 15:28) Codeine Allergy (Verified 12/23/18 15:28) Gabapentin Allergy (Verified 09/12/19 17:38) Hydromorphone [From Dilaudid] Allergy (Verified 12/23/18 15:28) Iodine Allergy (Verified 12/23/18 15:28) Midazolam [From Versed] Allergy (Verified 12/23/18 15:28) Penicillin G Allergy (Verified 12/23/18 15:28) Propoxyphene [From Darvocet-N] Allergy (Verified 12/23/18 15:28) Tramadol [From Ultram] Allergy (Verified 12/23/18 15:28) Home Medications: Ambulatory Orders Spironolactone [Aldactone] 50 mg PO TID 12/06/13 Cholecalciferol [Vitamin D3] 400 unit PO DAILY 06/07/17 Imipramine HCl [Imipramine Hydrochloride] 30 mg PO BEDTIME 06/07/17 Multiple Vitamins W/ Minerals [Preservision/Lutein] 1 cap PO BID 06/07/17 Oxycodone HCl [Oxycontin] 20 mg PO Q8HR 06/07/17 Sucralfate 1 gm PO AC 06/07/17 Dexlansoprazole [Dexilant] 60 mg PO DAILY 09/23/18 Ondansetron HCl [Zofran] 4 mg PO TID 09/23/18 Ascorbic Acid [Vitamin C Gummies] 1,000 mg PO BID 12/23/18 Aspirin (Buffered) 325 mg [Bufferin 325 mg] 1 ea PO BEDTIME 12/23/18 Furosemide 80 mg PO 0500,1700 12/23/18 Potassium Chloride [Potassium Chloride ER] 10 meq PO 0800,1900 12/23/18 Dexlansoprazole [Dexilant] 60 mg PO DAILY 03/25/19 Imipramine HCl 10 mg PO BEDTIME 03/25/19 Memantine HCl-Donepezil HCl [Namzaric 28-10 mg] 1 cap PO DAILY 03/25/19 Multiple Vitamins W/ Minerals [Preservision Areds] 1 cap PO DAILY 03/25/19 Topiramate [Topamax] 200 mg PO BID 03/25/19 Nitroglycerin 0.4 mg Tab [Nitrostat] 0.4 ea SL .Q5M PRN #1 bottle 03/26/19 Nitroglycerin [Nitrostat] 0.4 mg SL Q5MIN PRN #1 bottle 09/12/19 Review of Systems - Review of Systems Constitutional: States: see HPI, weakness - Right arm and right leg as well as right facial droop. EENTM: States: no symptoms reported Respiratory: States: no symptoms reported Cardiology: States: no symptoms reported Gastrointestinal/Abdominal: States: no symptoms reported Genitourinary: States: no symptoms reported Musculoskeletal: States: no symptoms reported Skin: States: no symptoms reported Neurological: States: see HPI, headache, numbness - Right face, right arm and right leg, weakness - Right leg and right arm. Very mild right facial droop. Endocrine: States: no symptoms reported Hematologic/Lymphatic: States: no symptoms reported All other Systems: Reviewed and Negative, No Change from Baseline Past Medical History (General) - Patient Medical History Hx Seizures: No Hx Stroke: Yes - 1987 Hx Dementia: Yes Hx Asthma: No Hx of COPD: No Hx Cardiac Disorders: Yes - Small vessel disease Hx Congestive Heart Failure: Yes Hx Pacemaker: No Hx Hypertension: Yes Hx Thyroid Disease: No Hx Diabetes: No Hx Gastroesophageal Reflux: Yes Hx Renal Disease: Yes - Stage 4 Hx Cancer: No Hx of HIV: No Hx Hepatitis C: No Hx MRSA: No Surgical History: cholecystectomy, Hysterectomy, other - Vaccination History Hx Tetanus, Diphtheria Vaccination: Yes Hx Influenza Vaccination: Yes Hx Pneumococcal Vaccination: Yes Immunizations Up to Date: Yes - Social History Hx Tobacco Use: No Hx Chewing Tobacco Use: No Hx Alcohol Use: No Hx Substance Use: No Hx Substance Use Treatment: No Hx Depression: Yes Feels Threatened In Home Enviroment: No Feels Threatened In a Relationship: No Hx Physical Abuse: No Hx Emotional Abuse: No Hx Suspected Abuse: No - Activities of Daily Living Hospice Agency (if applicable):: None - Female History Patient is a Female of Child Bearing Age (10 -59 yrs old): No Patient : No - Triage Comment ED Triage Comment: Pt loved at [facility], but is residing with daughter Chelsi Schneider at this time. Family Medical History - Family History Mother Living Status: Hx Family Stroke: Yes Hx Family Diabetes: Yes - mom Hx Family;Other: COPD Brother Living Status: Hx Family Cancer: Yes Physical Exam - Physical Exam General Appearance: Alert, Anxious, Well Developed, Well Groomed, Well Hydrated, Well Nourished Eye Exam: bilateral normal ENT Exam: other - Right facial droop mild Neck: non-tender, full range of motion, supple, normal inspection Respiratory: chest non-tender, lungs clear, normal breath sounds, no respiratory distress, no accessory muscle use Cardiovascular/Chest: normal peripheral pulses, regular rate, rhythm, no edema, no gallop Peripheral Pulses: radial,right: 2+, radial,left: 2+ Gastrointestinal/Abdominal: normal bowel sounds, non tender, soft Back Exam: normal inspection, no CVA tenderness, no vertebral tenderness Extremities Exam: non-tender, normal range of motion, other - Patient with mild weakness of the right upper extremity and right lower extremity. Mental Status: alert, oriented x 3 integration consultant Exam: normal hearing, normal speech, PERRL, facial droop, facial weakness Coordination/Gait: normal finger to nose, abnormal gait Motor/Sensory: sensory deficit - Right lower extremity and right upper extremity, weak motor strength RUE, weak motor strength RLE Skin Exam: normal color, warm/dry Progress - Progress Progress: Differential diagnosis: CVA, TIA, medication reaction, sundowning among others. 04/21/20 21:[address] changes. Labs are relatively unremarkable as is the EKG. Discussion with daughter in regards to TPA and they defer treatment with TPA but accept transfer to [facility] for stroke care. Plan transfer at this time.I discussed this plan of care with the patient and her daughter and they voiced understanding and agreement. King King M.D. #[id number] 03/14/20 22:53 Family has decided they do not want to have the patient transferred as she cannot be accompanied by family due to the COVID issues. Family has decided they do not want their mother transferred to [facility] because they cannot stay in the hospital with her due to COVID restrictions. Therefore, they have made her DNR and do not want TPA given for fear of a bleed. I have discussed the risks and benefits of this plan of action. They voiced understanding and agree ment. Plan on admission here. I discussed this with Barbara Bailey NP, who accepts the patient for admission. - Results/Orders Results/Orders: PROCEDURE: CT Head Without Intravenous Contrast CLINICAL INDICATION: The patient is 84 years years old, Female; stroke like symptoms TECHNIQUE: Axial computed tomography images of the head/brain without intravenous contrast. Sagittal and coronal reformatted images were created and reviewed. This CT exam was performed using one or more of the following dose reduction techniques: automated exposure control, adjustment of the mA and/or kV according to patient size, and/or use of iterative reconstruction technique. COMPARISON: No relevant prior studies available. FINDINGS: BRAIN: No intracerebral or extracerebral mass lesions are identified. Mohan/white matter distinction is maintained. There is no evidence of intracranial hemorrhage. There is no evidence of acute territorial infarct. (It should be noted that acute infarct may not be discernible in the first [address] ) Small hypodensity in the right lentiform nucleus is consistent with a small lacunar infarct probably subacute or chronic. There is moderate patchy hypodensity of the cerebral white matter which is nonspecific but likely secondary to chronic microvascular ischemic changes in end vessel distributions. MIDLINE SHIFT: There is no shift of the midline structures. VENTRICLES: There is prominence of the ventricles, sulci, cerebellar folia, and basilar cisterns consistent with volume loss. BONES/JOINTS: There is no acute calvarial abnormality or other discernible acute osseous abnormalities. Benign hyperostosis frontalis is present. SOFT TISSUES: Unremarkable. VASCULATURE: There is atherosclerotic calcification in the siphons of the bilateral internal carotid arteries. SINUSES: The visualized paranasal sinuses are clear with the exception of very minimal mucoperiosteal thickening in the ethmoid sinuses. MASTOID AIR CELLS: The mastoids and middle ears are clear. ORBITS: There are senescent changes in the orbits bilaterally. OTHER FINDINGS: Calcific densities surround the dens resulting in a "crowned dens" appearance as may occur with hydroxyapatite deposition disease. IMPRESSION: 1. No acute intracranial abnormality. (It should be noted that acute infarct may not be discernible in the first [address]) a follow-up head ct or mri is recommended if neurologic symptoms persist. 2. Volume loss. 3. ASVD. 4. Nonspecific moderate white matter lucency compatible with deep white matter ischemic changes versus demyelination versus gliosis. 5. Remainder of findings as discussed above. Electronically signed by: Bernarda Singer MD 03/14/2020 8:22 PM EKG performed 14 March 2020 at 2010 hrs.: Normal sinus rhythm with sinus arrhythmia at 90 bpm, cannot rule out anterior infarct, age indeterminate, abnormal EKG. 03/14/20 19:48 IV Care:Saline Lock per Protoc QSHIFT Telemetry .ONCE Sodium Chloride 0.9% (Flush) [Saline Flush Syringe] 10 ml IV PRN PRN 03/14/20 20:00 EKG STAT Laboratory Results - last 24 hr 03/14/20 03/14/20 03/14/20 20:22 20:22 20:22 WBC 4.2 L RBC 4.03 L Hgb 10.2 L Hct 32.7 L MCV 81.2 MCH 25.3 L MCHC 31.2 L RDW 15.8 H Plt Count 187 MPV 8.9 Absolute Neuts (auto) 2.20 Absolute Lymphs (auto) 1.20 Absolute Monos (auto) 0.50 Absolute Eos (auto) 0.20 Absolute Basos (auto) 0.00 Neutrophils % 53.1 Lymphocytes % 29.5 Monocytes % 12.5 H Eosinophils % 4.2 Basophils % 0.7 Sodium 135 Potassium 4.2 Chloride 106 Carbon Dioxide 23 Anion Gap 10.2 L BUN 37 H Creatinine 1.53 H BUN/Creatinine Ratio 24.2 H POC Glucose 89 Random Glucose 96 Serum Osmolality 278.6 Calcium 8.8 Total Bilirubin 0.5 AST 15 ALT 13 Alkaline Phosphatase 56 Creatine Kinase 43 CK-MB (CK-2) 3.8 CK-MB (CK-2) % Not Reportable Troponin I < 0.02 Serum Total Protein 6.3 L Albumin 3.6 Globulin 2.7 Albumin/Globulin Ratio 1.3 Vital Signs 03/14/20 03/14/20 03/14/20 19:40 20:38 21:00 Temperature 98.6 F Pulse Rate [ 93 H 90 88 pulse ox] Respiratory 12 16 14 Rate Blood Pressure 155/82 109/69 102/55 [Left Arm] O2 Sat by Pulse 96 97 92 L Oximetry 03/14/20 22:00 Temperature Pulse Rate [ 86 pulse ox] Respiratory 14 Rate Blood Pressure 107/64 [Left Arm] O2 Sat by Pulse 95 Oximetry - EKG/XRAY/CT CT Ordered: Yes Stroke Information - Onset of Symptoms Stroke Onset of Symptoms Date: 03/14/20 Stroke Onset of Symptoms Time: 19:10 Departure - Departure Clinical Impression: Renal insufficiency, mild CVA (cerebral vascular accident) Qualifiers: CVA mechanism: unspecified Qualified Code(s): I63.9 - Cerebral infarction, unspecified Time of Disposition: 21:47 Disposition: Admit Patient Condition: Fair Departure Forms: ED Discharge - Pt. Copy, Patient Portal Self Enrollment Referrals: YARA DAO MD [Primary Care Provider] - 1-2 Weeks Home Medications: Ambulatory Orders Spironolactone [Aldactone] 50 mg PO TID 12/06/13 Cholecalciferol [Vitamin D3] 400 unit PO DAILY 06/07/17 Imipramine HCl [Imipramine Hydrochloride] 30 mg PO BEDTIME 06/07/17 Multiple Vitamins W/ Minerals [Preservision/Lutein] 1 cap PO BID 06/07/17 Oxycodone HCl [Oxycontin] 20 mg PO Q8HR 06/07/17 Sucralfate 1 gm PO AC 06/07/17 Dexlansoprazole [Dexilant] 60 mg PO DAILY 09/23/18 Ondansetron HCl [Zofran] 4 mg PO TID 09/23/18 Ascorbic Acid [Vitamin C Gummies] 1,000 mg PO BID 12/23/18 Aspirin (Buffered) 325 mg [Bufferin 325 mg] 1 ea PO BEDTIME 12/23/18 Furosemide 80 mg PO 0500,1700 12/23/18 Potassium Chloride [Potassium Chloride ER] 10 meq PO 0800,1900 12/23/18 Dexlansoprazole [Dexilant] 60 mg PO DAILY 03/25/19 Imipramine HCl 10 mg PO BEDTIME 03/25/19 Memantine HCl-Donepezil HCl [Namzaric 28-10 mg] 1 cap PO DAILY 03/25/19 Multiple Vitamins W/ Minerals [Preservision Areds] 1 cap PO DAILY 03/25/19 Topiramate [Topamax] 200 mg PO BID 03/25/19 Nitroglycerin 0.4 mg Tab [Nitrostat] 0.4 ea SL .Q5M PRN #1 bottle 03/26/19 Nitroglycerin [Nitrostat] 0.4 mg SL Q5MIN PRN #1 bottle 09/12/19 Decision To Admit - Decistion To Admit Decision to Admit Date: 03/14/20 Decision to Admit Time: 22:00 Transfer to Outside Facility - Transfer Information Decision to Transfer Date: 03/14/20 Decision to Transfer Time: 21:15 Reason for Transfer: required specialist not available Accepting Provider:: Dr. Randall Accepting Facility: [facility]
[2020-03-14] MEDS ORDERED: ONDANSETRON INJ 4 MG/2 ML VIAL IV PRN (23:36)
[2020-03-14] MEDS ORDERED: IV SET AND CAP CHANGE INJ INJ SCH (23:45)
[2020-03-15] MEDS: TOPIRAMATE 25 MG TAB PO SCH ×2 (00:17→09:52)
[2020-03-15] MEDS ORDERED: SODIUM CHLORIDE 0.9% (FLUSH) 10 ML SYG IV SCH (09:00)
[2020-03-15] MEDS ORDERED: OXYCODONE PO PRN (09:36)
--- NOTE | 2020-03-15 10:28 | MRI ---
EXAM DESCRIPTION: Brain w/o Contrast: MRI. CLINICAL HISTORY: CVA COMPARISON: MRI of the brain without contrast November 2016. TECHNIQUE: Multiplanar, high-field MRI unit, multiple diffusion sequences, multiple conventional sequences without contrast. FINDINGS: Bilateral confluent hyperintense FLAIR and T2-weighted signal in the periventricular white matter beginning above the lateral basal ganglia and extending in the ngo radiata bilaterally in the centrum semiovale. Hyperintense subcortical white matter also bilaterally involving the frontal parietal and occipital lobes also more remote subcortical white matter lesions near the vertex bilaterally.. No hemorrhage, no cerebral edema, no midline shift.. Relative sparing of the temporal lobes bilaterally. Bilateral similar lesions in the basal ganglia, slightly more involvement of the left anterior region. No hemorrhage, no cerebral edema, no mass-effect normal signal in the brainstem and cerebellar hemispheres.. Concordance of the diffusion and non-diffusion sequences with no diffusion restriction. Cortical sulci, ventricles, and other CSF spaces, and the subdural spaces are normally configured for patients age. No effacement or displacement. No midline shift. No extra-axial hemorrhage. Normal flow signal void in the major vessels of the [place], and the venous sinuses. IACs are symmetric bilaterally. Minimal fluid signal in the right mastoid air cells. No mass effect in the bilateral cerebellopontine angles. Pituitary gland occupies approximately half of the sella. Base of the cerebellar tonsils is slightly above the foramen magnum. No significant abnormalities in the paranasal sinuses. The bony calvarium is intact. IMPRESSION: 1. Abnormal white matter signal in the periventricular white matter, the centrum semiovale, in the bilateral subcortical white matter at the level of the ventricles and also remotely in the bilateral vertex involving frontal parietal and occipital lobes. Consistent with small vessel disease and/or aging. No hemorrhage, no mass effect, no midline shift. 2. Normal noncontrast MRI diffusion scan with no evidence of significant acute ischemia or acute or subacute infarction. 3. Minimal right mastoid chronic sinusitis. Electronically signed by: Brad Perez MD 03/15/2020 10:26 AM CDT
[2020-03-15 12:40] VITALS: BP 124/73; TEMP 97.6; O2SAT 98
--- NOTE | 2020-03-15 13:43 | US ---
EXAM DESCRIPTION: Carotid Duplex: ULTRASOUND. CLINICAL HISTORY: 84 years Female CVA COMPARISON: None. TECHNIQUE: Transcutaneous scanning utilizing kevin-scale and Doppler modes to evaluate the bilateral carotid systems and vertebral arteries. Percentage of diameter of stenosis or no stenosis recorded will be based upon NASCET criteria. FINDINGS: Peak systolic/end diastolic (CM-Sec) CCA Right 83/19 Left 114/15. ICA Right proximal 106/8, mid 81/18. Left proximal 69/14, mid 83/20. Vertebral Right 65/19 Left 78/18. ECA (PS Only) Right 115 left 98. ICA/CCA peak systolic ratio: Right 1.3 Left 0.7 ICA/CCA end diastolic ratio: Right 0.9 Left 1.3 Vertebral arteries: antegrade flow. Comments: Color turbulent flow in the distal right ICA. Spectral broadening in the bilateral ICAs. Bilateral echogenic atherosclerotic calcifications at the bifurcations and proximal ICAs. IMPRESSION: 1. Doppler evaluation of the bilateral carotid systems and vertebral arteries shows no hemodynamically significant stenoses. 2. No significant amount of plaque in the carotid arteries bilaterally. Bilateral vertebral arteries showed antegrade-cephalad flow. Electronically signed by: Brad Perez MD 03/15/2020 1:41 PM CDT
--- NOTE | 2020-03-19 09:48 | SSS ---
SUPERVISING PHYSICIAN: Jarred Sanchez MD DISCHARGE DIAGNOSES: 1. Weakness with right-sided paresthesias that resolved, most likely secondary to a TIA. The patient has a history of TIAs and CVAs. 2. History of angiodysplasia of the colon. 3. Congestive heart failure with ejection fraction of 70% in 2011, diastolic in etiology. Current echocardiogram pending. 4. Chronic renal insufficiency. 5. Chronic lower back pain. 6. Rheumatoid arthritis. HISTORY OF PRESENT ILLNESS: This is an 84 year-old female patient who presented to the Emergency Room with an acute onset of right-sided weakness and mild paresthesia one-half hour prior to arrival. Patient has a history of strokes and TIAs. She was noted to have weakness in her right leg and right arm. There were no complaints of chest pain, shortness of breath, nausea, vomiting, diarrhea, dizziness or blurred vision. The patient has also complained of numbness. The daughter did report that she has a right facial droop but symptoms resolved at the time of arrival and have continued to markedly improve while in the Emergency Room. Her initial vital signs showed a temperature of 99.3 and heart rate of 93, blood pressure 158/68, respiratory rate 20, oxygen saturation 100% on room air. Laboratory studies were done. WBC 4,600 with hemoglobin of 9, hematocrit 29.7. There was no left shift on the differential. Electrolytes were within normal limits. She did have a BUN of 26, creatinine 1.8. her baseline creatinine is about 1.7 to 1.8. Calcium 8.3. THe remainder of her metabolic panel was unremarkable. HEAD CT: 1, No acute intracranial abnormality. 2. Volume loss. 3. ASVD. 4. Nonspecific moderate white matter lucency compared with deep white matter ischemic changes versus demyelinization versus chrysosis. Please see CT report for further findings. Chest x-ray showed enlarged heart with moderate central congestion, no infiltrates seen. The patient initially was to be transferred but the family refused. They also refused any anticoagulation therapy and said they would not do any aggressive treatment. She is on an aspirin at home and initially patient was a full-code and the family decided to make her a DNR. She does live at [facility] typically but since the COVID-19 problem she has lived with her daughter. I was called by the Emergency Room doctor to place patient in observation, HOSPITAL COURSE: The patient was admitted to the hospital under observation. Neuro checks were done. Stroke protocol was initiated. Again, the patient's family refused for her to be on any anticoagulants other than her routine medications. Her routine medications were restarted. MRI of the brain was scheduled as well as an echocardiogram and a carotid artery ultrasound. The patient had no signs or symptoms of neurological changes. She will be discharged home today in stable condition. PAST MEDICAL HISTORY: 1. Congestive heart failure. 2. Chronic renal insufficiency. 3. Chronic low back pain, 4. Osteoporosis. 5. Rheumatoid arthritis. 6. Migraine headaches. PAST SURGICAL HISTORY: 1. Hysterectomy. 2. Cholecystectomy. 3. Right and left knee replacements. 4. Back surgery x3. 5. Esophageal dilatation. OUTPATIENT MEDICATIONS: Per the EMR and awaiting verification. ALLERGIES: Sulfa, penicillin, codeine, Darvon, Ultram, Dilaudid, Keflex, morphine. SOCIAL HISTORY: She lives in [place], typically she lives at [facility] but she is living with her daughter at this time due to the COVID-19 pandemic. She is . She denies any tobacco, ETOH or illicit drug use. REVIEW OF SYSTEMS: Negative except as per history of present illness. PHYSICAL EXAMINATION: VITAL SIGNS: Temperature 97.4, heart rate 98, blood pressure 103/66, respiratory rate 18, oxygen saturation 97% on room air. GENERAL: This is an 84 year-old female patient who is lying in her hospital bed. She is in no acute distress. HEENT: Normocephalic and atraumatic. Oropharynx is clear. NECK: Supple without mass. CHEST: Essentially clear to auscultation bilaterally. CARDIOVASCULAR: Regular rate and rhythm. ABDOMEN: Soft, nondistended, non-tender. bowel sounds are positive. EXTREMITIES: No cyanosis, clubbing, or edema, NEUROLOGIC: Alert and oriented x3. Cranial nerves II through XII are grossly intact as tested. She has bilateral report programmer, she is able to ambulate short distance without any problem. There is no noticeable facial droop. SKIN: Warm and dry. LABORATORY: WBCs have been between 4.6 and 3.8. Hemoglobin is stable at 9.4, hematocrit 29.7. Chemistries are unremarkable. BUN 37, creatinine 1.63, triglyceride 196, LDL 127, HDL 34. Echocardiogram results are pending. BRAIN MRI: 1. Normal white matter signal in the periventricular white matter, the centrum semiovale in the bilateral subcortical white matter at the level of the ventricles and also remotely in the bilateral vertex involving frontal parietal and occipital lobes consistent with small vessel disease and/or aging. No hemorrhage, no mass effect, no midline shift. 2. Normal noncontrast MRI diffusion scan with no evidence of significant acute ischemia or subacute infarction. 3. Minimal right mastoid chronic sinusitis. CAROTID ARTERY ULTRASOUND: 1. Doppler evaluation of the bilateral carotid systems and vertebral arteries shows no hemodynamically significant stenosis. 2. No significant amount of plaque in the carotid arteries bilaterally. Bilateral vertebral arteries shows antegrade-cephalad flow. DISCHARGE PLAN: The patient was discharged home in stable condition. She is to resume her previous diet and activity. She is to continue her present home medications as previously ordered. She is to followup with Dr. Aaron within the next 1 to 2 weeks and to return to the hospital for any problems or complications. DISCHARGE MEDICATIONS: 1. Spironolactone. 2. Oxycodone. 3. Multivitamins. 4. Vitamin D3. 5. Sucralfate. 6. Imipramine. 7. Zofran. 8. Vitamin C. 9. Potassium chloride. 10. Topiramate. 11. Memantine. 12. Napizole. 13. Dexilant. 14. Nitroglycerin. 15. Iron heme polypeptide. 17. Aspirin. 18. Cheryle. #[id number] MTDD
== END 2020-03-15 15:30 | disposition home or self-care (01) ==
LOC: ER 19:38 → MS 23:04
PROVIDERS: ADMIT Nurse Practitioner Acute Care; ATTEND Nurse Practitioner Acute Care
DX: M62.81 Muscle weakness (generalized) (principal); R20.2 Paresthesia of skin; Z86.73 Personal history of transient ischemic attack (TIA), and cerebral infarction without residual deficits; K55.20 Angiodysplasia of colon without hemorrhage; I13.0 Hypertensive heart and chronic kidney disease with heart failure and stage 1 through stage 4 chronic kidney disease, or unspecified chronic kidney disease; I50.32 Chronic diastolic (congestive) heart failure; N18.4 Chronic kidney disease, stage 4 (severe); F03.90 Unspecified dementia, unspecified severity, without behavioral disturbance, psychotic disturbance, mood disturbance, and anxiety; G89.29 Other chronic pain; M54.5 Low back pain; M06.9 Rheumatoid arthritis, unspecified; M81.0 Age-related osteoporosis without current pathological fracture; R90.82 White matter disease, unspecified; I35.1 Nonrheumatic aortic (valve) insufficiency; I34.0 Nonrheumatic mitral (valve) insufficiency; I36.1 Nonrheumatic tricuspid (valve) insufficiency; Z66 Do not resuscitate; Z96.653 Presence of artificial knee joint, bilateral; Z79.82 Long term (current) use of aspirin; Z79.891 Long term (current) use of opiate analgesic; Z79.899 Other long term (current) drug therapy; Z88.0 Allergy status to penicillin; Z88.2 Allergy status to sulfonamides; Z88.6 Allergy status to analgesic agent; Z88.1 Allergy status to other antibiotic agents

== ENCOUNTER → 2020-03-23 | Outpatient (CLI) | payer MEDICARE, BC | LOC: BFHH 14:24 | PROVIDERS: ATTEND Family Medicine | DX: N18.4 Chronic kidney disease, stage 4 (severe) (principal); D63.1 Anemia in chronic kidney disease ==

== ENCOUNTER → 2020-05-19 | Outpatient (CLI) | payer MEDICARE, BC | LOC: LAB.O 12:06 | PROVIDERS: ATTEND Family Medicine | DX: N18.9 Chronic kidney disease, unspecified (principal); D63.1 Anemia in chronic kidney disease ==

== ENCOUNTER 2020-05-28 16:57 | Observation (INO) | payer MEDICARE, BC ==
--- NOTE | 2020-05-28 18:04 | RAD ---
EXAM: XR Chest, 1 View CLINICAL HISTORY: The patient is 84 years old and is Female; near syncope TECHNIQUE: Single view of the chest. COMPARISON: March 14, 2020. FINDINGS: Lungs: Hyperinflation. No consolidation. Pleural space: Unremarkable. No pneumothorax. Heart: The cardiac silhouette is enlarged versus artifact of AP technique. Mediastinum: Unremarkable. Bones/joints: Thoracolumbar spinal hardware. Scoliosis. Soft tissues: Bilateral breast implants. Upper abdomen: No free air in the visualized upper abdomen. IMPRESSION: Hyperinflation. No consolidation. Electronically signed by: Lashon Ch MD 05/28/2020 6:03 PM CDT
[2020-05-28] MEDS ORDERED: diphenhydrAMINE HCL 25 MG CAP PO ONE (18:20)
[2020-05-28] MEDS ORDERED: ACETAMINOPHEN 325 MG TAB PO ONE (18:20)
[2020-05-28] MEDS ORDERED: predniSONE 20 MG TAB PO ONE (18:21)
--- NOTE | 2020-05-28 18:29 | ED.PDOC ---
History of Present Illness - General Chief Complaint: General Stated Complaint: Weakness, near syncope Time Seen by Provider: 05/28/20 16:58 Source: patient, family Exam Limitations: no limitations - History of Present Illness Initial Comments: The patient is an 84-year-old female presented emergency room with her daughter secondary to a near syncopal episode that was witnessed by the daughter. Her daughter is a nurse. The patient does have longstanding anemia that is likely multifactorial, related to chronic iron deficiency as well as chronic renal insufficiency. The patient has had to have a transfusion in the past when she became symptomatic in the form of near syncope in the past. No chest pain. She has been getting more short of breath with activity. No definite fevers. No cough. No nausea or vomiting. No falls recently. The patient is pleasant and cooperative. She is of a very advanced age and does have some mild chronic dementia. The patient lives at the assisted living center. The patient does have some mild baseline tachycardia. Timing/Duration: momentarily Severity: moderate Improving Factors: nothing Worsening Factors: nothing Associated Symptoms: malaise, other - Near syncope Allergies/Adverse Reactions: Allergies Morphine Allergy (Intermediate, Verified 12/23/18 15:28) Acetaminophen [From Darvocet-N] Allergy (Verified 12/23/18 15:28) Cephalexin [From Keflex] Allergy (Verified 12/23/18 15:28) Codeine Allergy (Verified 12/23/18 15:28) Gabapentin Allergy (Verified 09/12/19 17:38) Hydromorphone [From Dilaudid] Allergy (Verified 12/23/18 15:28) Iodine Allergy (Verified 12/23/18 15:28) Midazolam [From Versed] Allergy (Verified 12/23/18 15:28) Penicillin G Allergy (Verified 12/23/18 15:28) Propoxyphene [From Darvocet-N] Allergy (Verified 12/23/18 15:28) Tramadol [From Ultram] Allergy (Verified 12/23/18 15:28) Home Medications: Ambulatory Orders Spironolactone [Aldactone] 50 mg PO TID 12/06/13 Cholecalciferol [Vitamin D3] 400 unit PO DAILY 06/07/17 Imipramine HCl [Imipramine Hydrochloride] 30 mg PO BEDTIME 06/07/17 Multiple Vitamins W/ Minerals [Preservision/Lutein] 1 cap PO BID 06/07/17 Oxycodone HCl [Oxycontin] 20 mg PO Q6HR 06/07/17 Sucralfate 1 gm PO AC 06/07/17 Ondansetron HCl [Zofran] 4 mg PO TID 09/23/18 Ascorbic Acid [Vitamin C Gummies] 480 units PO QID 12/23/18 Furosemide 80 mg PO 0500,1700 12/23/18 Potassium Chloride [Potassium Chloride ER] 10 meq PO TID 12/23/18 Dexlansoprazole [Dexilant] 60 mg PO DAILY 03/25/19 Memantine HCl-Donepezil HCl [Namzaric 28-10 mg] 1 cap PO DAILY 03/25/19 Multiple Vitamins W/ Minerals [Preservision Areds] 1 cap PO DAILY 03/25/19 Topiramate [Topamax] 200 mg PO BID 03/25/19 Nitroglycerin 0.4 mg Tab [Nitrostat] 0.4 ea SL .Q5M PRN #1 bottle 03/26/19 Nitroglycerin [Nitrostat] 0.4 mg SL Q5MIN PRN #1 bottle 09/12/19 Aspirin [Aspirin EC] 81 mg PO DAILY 03/14/20 Fexofenadine HCl [Cheryle Allergy] 180 mg PO DAILY 03/14/20 Iron Heme Polypeptide [Proferrin Es] 12 mg PO DAILY 03/14/20 Review of Systems - Review of Systems Constitutional: States: malaise EENTM: States: no symptoms reported Respiratory: States: no symptoms reported Cardiology: States: see HPI Gastrointestinal/Abdominal: States: no symptoms reported Genitourinary: States: no symptoms reported Musculoskeletal: States: no symptoms reported Skin: States: no symptoms reported Neurological: States: see HPI Endocrine: States: no symptoms reported All other Systems: No Change from Baseline Past Medical History (General) - Patient Medical History Hx Seizures: No Hx Stroke: Yes Hx Dementia: Yes Hx Asthma: No Hx of COPD: No Hx Cardiac Disorders: Yes - Small vessel disease Hx Congestive Heart Failure: Yes Hx Pacemaker: No Hx Hypertension: No Hx Thyroid Disease: No Hx Diabetes: No Hx Gastroesophageal Reflux: Yes Hx Renal Disease: Yes - ERSD Hx Cancer: No Hx of HIV: No Hx Hepatitis C: No Hx MRSA: No Surgical History: cholecystectomy, Hysterectomy, other - Vaccination History Hx Tetanus, Diphtheria Vaccination: Yes Hx Influenza Vaccination: Yes Hx Pneumococcal Vaccination: Yes - Social History Hx Tobacco Use: No Hx Chewing Tobacco Use: No Hx Alcohol Use: No Hx Substance Use: No Hx Substance Use Treatment: No Hx Depression: No Hx Physical Abuse: No Hx Emotional Abuse: No Hx Suspected Abuse: No - Activities of Daily Living Penitentiary/Assisted Living (if applicable):: [place] - Female History Patient is a Female of Child Bearing Age (10 -59 yrs old): No Patient : No Family Medical History - Family History Father Living Status: Cause of : Emphysema Mother Living Status: Hx Family Stroke: Yes Hx Family Diabetes: Yes - mom Hx Family;Other: COPD Brother Living Status: Hx Family Cancer: Yes Physical Exam - Physical Exam General Appearance: Alert, Frail Eye Exam: bilateral normal Ears, Nose, Throat: normal pharynx, other - The patient does require hearing aids Neck: non-tender, supple Respiratory: no respiratory distress, no accessory muscle use Cardiovascular/Chest: normal peripheral pulses, regular rate, rhythm, no edema Peripheral Pulses: radial,right: 2+, radial,left: 2+ Gastrointestinal/Abdominal: non tender, soft Rectal Exam: deferred Extremity: normal range of motion, no pedal edema, normal capillary refill Neurologic: recreation technician II-XII nml as tested - Chronic hearing loss, alert, normal mood/affect Skin Exam: pallor Comments: Vital Signs - 24 hr 05/28/20 05/28/20 05/28/20 16:58 16:59 17:59 Temperature 100.1 F H Pulse Rate [ 118 H 118 H 91 H Pulse ox] Respiratory 20 20 Rate Blood Pressure 131/64 124/50 [L arm] O2 Sat by Pulse 98 92 L Oximetry 05/28/20 18:17 Temperature Pulse Rate [ 100 H Pulse ox] Respiratory Rate Blood Pressure 114/59 [L arm] O2 Sat by Pulse 98 Oximetry Progress - Progress Progress: 05/28/20 18:31 The patient is a 84-year-old female presenting with an episode of near syncope. The patient has experienced similar symptoms in the past when she became too anemic. She does have longstanding chronic anemia from iron deficiency as well as chronic renal insufficiency. She does appear to be iron deficient today based on laboratory work. A reticulocyte count and erythropoietin level have been sent as well. The patient will be transfused with a unit of packed red blood cells and monitored overnight. Continue telemetry monitoring. Initial EKG is reassuring. Initial blood work otherwise is reassuring aside from the anemia. No evidence of any active bleeding clinically. The patient does have worsening chronic renal insufficiency which will need to be followed. Based upon her blood pressures as well as a laboratory work I do believe that she is slightly over diuresed at this time. This may need to be reduced. Additionally she may need to have other blood pressure medication slightly reduced if she continues to have near syncopal episodes. Obviously if the anemia is corrected she continues to have near syncopal episodes, then another source may need to be found. At this time anemia seems most likely source. The patient is being dosed with a dose of prednisone, Benadryl and Tylenol before the transfusion. I am not planning on giving any diuretic with his transfusion. The patient does have a mild baseline temperature elevation upon arrival. This will need to be followed. No known exposure to coronavirus at this time. usama white [id number] - Results/Orders Results/Orders: Laboratory Tests 05/28/20 05/28/20 05/28/20 17:33 17:33 17:33 WBC 4.7 L RBC 3.63 L Hgb 7.8 L* Hct 25.6 L MCV 70.7 L MCH 21.5 L MCHC 30.5 L RDW 16.6 H Plt Count 195 MPV 8.7 Absolute Neuts (auto) 3.20 Absolute Lymphs (auto) 0.80 L Absolute Monos (auto) 0.60 Absolute Eos (auto) 0.10 Absolute Basos (auto) 0.00 Neutrophils % 67.5 Lymphocytes % 17.8 L Monocytes % 11.8 H Eosinophils % 2.1 Basophils % 0.8 Normal RBC Morphology 1+ovalocytes PT 11.0 H INR 1.11 PTT (SP) 25.3 Sodium 137 Potassium 4.0 Chloride 95 L Carbon Dioxide 29 Anion Gap 17.0 BUN 50 H Creatinine 2.37 H BUN/Creatinine Ratio 21.1 H Random Glucose 117 H Serum Osmolality 288.2 Calcium 9.3 Magnesium 2.3 Iron 10 L TIBC 392.0 Iron Saturation 2.50 L Total Bilirubin 0.4 AST 24 ALT 16 Alkaline Phosphatase 73 Creatine Kinase 206 H* CK-MB (CK-2) 3.7 CK-MB (CK-2) % 1.80 Troponin I 0.02 B-Natriuretic Peptide 52.2 Serum Total Protein 6.6 Albumin 3.8 Globulin 2.8 Albumin/Globulin Ratio 1.4 TSH 1.66 Chest x-ray shows mild cardiomegaly, hyperinflation and chronic scoliosis. Postsurgical changes as well. EKG shows normal sinus rhythm at 99 bpm. Normal axis. Normal R wave progression. No ST segment or T wave changes indicative of acute ischemia. Normal QT interval. Departure - Departure Clinical Impression: Symptomatic anemia, Syncope, near, Chronic renal insufficiency, stage IV (severe) Disposition: Admit Patient Condition: Fair Departure Forms: ED Discharge - Pt. Copy, Patient Portal Self Enrollment Referrals: YARA DAO MD [Primary Care Provider] - 1-2 Weeks Home Medications: Ambulatory Orders Spironolactone [Aldactone] 50 mg PO TID 12/06/13 Cholecalciferol [Vitamin D3] 400 unit PO DAILY 06/07/17 Imipramine HCl [Imipramine Hydrochloride] 30 mg PO BEDTIME 06/07/17 Multiple Vitamins W/ Minerals [Preservision/Lutein] 1 cap PO BID 06/07/17 Oxycodone HCl [Oxycontin] 20 mg PO Q6HR 06/07/17 Sucralfate 1 gm PO AC 06/07/17 Ondansetron HCl [Zofran] 4 mg PO TID 09/23/18 Ascorbic Acid [Vitamin C Gummies] 480 units PO QID 12/23/18 Furosemide 80 mg PO 0500,1700 12/23/18 Potassium Chloride [Potassium Chloride ER] 10 meq PO TID 12/23/18 Dexlansoprazole [Dexilant] 60 mg PO DAILY 03/25/19 Memantine HCl-Donepezil HCl [Namzaric 28-10 mg] 1 cap PO DAILY 03/25/19 Multiple Vitamins W/ Minerals [Preservision Areds] 1 cap PO DAILY 03/25/19 Topiramate [Topamax] 200 mg PO BID 03/25/19 Nitroglycerin 0.4 mg Tab [Nitrostat] 0.4 ea SL .Q5M PRN #1 bottle 03/26/19 Nitroglycerin [Nitrostat] 0.4 mg SL Q5MIN PRN #1 bottle 09/12/19 Aspirin [Aspirin EC] 81 mg PO DAILY 03/14/20 Fexofenadine HCl [Cheryle Allergy] 180 mg PO DAILY 03/14/20 Iron Heme Polypeptide [Proferrin Es] 12 mg PO DAILY 03/14/20 Decision To Admit - Decistion To Admit Decision to Admit Reason: Medical Nature Decision to Admit Date: 05/28/20 Decision to Admit Time: 18:33
--- NOTE | 2020-05-28 19:23 | HP ---
SUPERVISING PHYSICIAN: Luisito Temple MD CHIEF COMPLAINT: Near syncopal episode, weakness. HISTORY OF PRESENT ILLNESS: Ms. Carreno is an 84 year-old female who presented to the Emergency Room today after she apparently had a near syncopal episode that was witnessed by her daughter who is a nurse. Her past medical history is significant for anemia secondary to chronic iron deficiency and chronic renal insufficiency. She has been transfused in the past with similar symptoms related to a near syncopal episode . On this presentation, she was denying any chest pain but notes that she has been getting a little bit short of breath with some activity but no obvious fevers, coughs, nausea or vomiting. She denies any recent falls. Her hemoglobin is 7.8, hematocrit 25.6 with microcytic hypochromic RBC indices. Platelet count 195,000, differential without a left shift. Coagulation studies showed a normal PT/PTT. Renal function does show elevated BUN at 50 with creatinine 2.37. Liver functions all within normal limits. Magnesium normal. Iron panel showed iron of 10, TIBC 392, iron saturation 2.5. Also elevated was noted creatinine at 206, troponin normal at 0.02. TSH 1.66. Urinalysis pending. Chest x-ray was also completed in the Emergency Room and showed no consolidation, just some mild hyperinflation. Vital signs on initial presentation today showed she had a mild temperature of 100.1, a little tachycardic at 118 but blood pressure was 131/64, oxygen saturation 98% on room air with respirations of 20. Given that she had a near syncopal episode and mildly tachycardiac and certainly showing some anemia, Dr. Wylie requested the patient be admitted for continuation of transfusion initiated in the Emergency Room for symptomatic anemia secondary to what appears to be underlying chronic iron-deficiency anemia. She was placed in observation in stale condition. PAST MEDICAL HISTORY: 1. Congestive heart failure with last echocardiogram in February 2020 showing a mildly reduced left ventricular function at 55 to 60%. 2. Chronic iron-deficiency anemia having been previously treated with transfusions and iron infusion. 3. Chronic renal insufficiency with creatinine baseline around 1.8. 4. Chronic lower back pain on chronic pain management. 5. Osteoporosis. 6. Rheumatoid arthritis. 7. Migraine headaches. PAST SURGICAL HISTORY: 1. Cholecystectomy. 2. Bilateral knee replacement. 3. Three back surgeries. 4. Esophageal dilation. CURRENT MEDICATIONS: 1. Topamax 200 mg b.i.d. 2. Sucralfate 1 gram a.c. 3. Aldactone 50 mg b.i.d. 4. Potassium chloride 30 mEq t.i.d. 5. Oxycodone 20 mg every 6 hours. 6. Zofran 4 mg t.i.d. p.r.n. 7. Nitroglycerin 0.4 mg as needed every 5 minutes. 8. Namzaric 28/10 mg one daily. 9. Proferrin 12 mg daily. 10. Imipramine 30 mg at bedtime. 11. Lasix 80 mg b.i.d. 12. Cheryle 180 mg daily. 13. Dexilant 60 mg daily. 14. Vitamin D3, 4 units daily. 15. Aspirin 81 mg b.i.d. 16. Ascorbic acid 480 mg daily. ALLERGIES: Multiple allergies: 1. Morphine. 2. Tylenol. 3. Penicillin. 4. Cephalosporins. 5. Codeine. 6. Dilaudid. 7. Iodine. 8. Versed. 9. Darvocet. 10. Tramadol. FAMILY HISTORY: Noncontributory to current admission. SOCIAL HISTORY: The patient lives in [place] at [facility]. She is and denies any tobacco or illicit or drug use. REVIEW OF SYSTEMS: CONSTITUTIONAL: Positive for general malaise, low-grade fever. Denies any unintentional weight loss. HEENT: Denies headaches. vision changes, sore throat. nasal congestion, earaches. CHEST: Denies coughing, wheezing, shortness of breath. HEART: As noted in history of present illness. Positive for syncopal episode. Denies chest pain, palpitations. ABDOMEN: Denies nausea, vomiting, diarrhea or constipation or abdominal pains. GENITOURINARY: Denies dysuria, hematuria or polyuria. MUSCULOSKELETAL: Chronic back pain. SKIN: Denies lesions, rashes, moles or unexplained changes. NEUROLOGIC: As noted in history of present illness. Note syncopal episode. Denies ataxia, seizures, paresthesias or other neurological deficits. HEMATOLOGICAL: She does have bruises but no unexplained bleeding or transfusion reactions. PHYSICAL EXAMINATION: VITAL SIGNS: On admission, mildly low-grade temperature of 100.1, heart rate 118, blood pressure 131/64, respiratory rate 20, oxygen saturation 98% on room air. On admission to the medical/surgical floor, temperature 98.7 without any Tylenol or Motrin. Heart rate 87, blood pressure 111/69, oxygen saturation 97% on room air, respirations 16. GENERAL: The patient does look advanced in age and very frail but she is alert and shows to be in no acute distress. HEENT: Tympanic membranes obscured by bilateral hearing aids but oropharynx is pink and moist without any lesions. NECK: Supple, non-tender, full range of motion. CHEST: Lung sounds clear to auscultation bilaterally without rhonchi, rales, or wheezes. CARDIOVASCULAR: Regular rate and rhythm without appreciable murmurs, rubs, or gallops. ABDOMEN: Soft, non-tender. bowel sounds are positive. RECTAL: Exam deferred. EXTREMITIES: No cyanosis, clubbing, or edema, NEUROLOGIC: Cranial nerves II through XII are grossly intact except for just gross hearing loss which is chronic. She is alert and oriented x 3. SKIN: Pale but warm and dry. LABORATORY: White count 4,700 without differential showing a left shift. Hemoglobin 7.8, RBC indices indicated a microcytic hypochromic anemia. Coagulation studies showed a normal PT/PTT. Chemistries showed normal electrolytes. BUN was elevated, creatinine 2.37 with creatinine baseline is between 1.6 and 1.8. Glucose 117. Liver functions within normal limits. Iron panel showed iron of 10, TIBC 392 with iron saturation of 2.5. CK slightly elevated at 206, troponin normal at 0.002, albumin 3.8, TSH 1.66. RADIOLOGY: Chest x-ray in the Emergency Room without any acute findings per radiology interpretation, no consolidation. ASSESSMENT: 1. Symptomatic anemia with a near syncopal episode . 2. Iron-deficiency anemia contributing to #1. 3. Acute renal insufficiency, likely due to prerenal azotemia from both underlying dehydration from multiple diuretics and underlying anemia. 4. History of angiodysplasia of the colon. 5. History of congestive heart failure with last ejection fraction in 2019 showing between 55 and 60% but no signs of exacerbation at time of admission. 6. Chronic lower back pain. 7. Rheumatoid arthritis. PLAN: Ms. Carreno is going to be placed in observation for continued transfusion of one unit of packed RBCs that was ordered through the Emergency Room and for close monitoring given her advanced age and continuation of neurological observation due to her near syncopal episode . If she does have any stools, we certainly will get an occult blood. We will resume her home medications once those have been updated and verified. She will be on a regular diet as tolerated. Will hold off on Lovenox at this point to insure that she is not having any acute loss resulted in her anemia. Will hold her any additional Lasix as she is already on 80 mg b.i.d. plus spironolactone. Again, I anticipate she will be in the hospital at least 1 to 2 days, probably discharge later tomorrow as long as she does have any complications or confusion and is showing to be clinically stable. She has had no mention of any exposure to a Covid-19 patient and has remained in isolation while at [facility]. Until we can transition her to outpatient management, we will continue to monitor and treat as needed. #[id number] [facility]
[2020-05-28] MEDS ORDERED: MAGNESIUM HYDROXIDE 30 ML UD PO PRN (20:57)
[2020-05-28] MEDS ORDERED: ONDANSETRON INJ 4 MG/2 ML VIAL IV PRN (20:57)
[2020-05-28] MEDS ORDERED: SODIUM CHLORIDE 0.9% (FLUSH) 10 ML SYG IV PRN (20:57)
[2020-05-28] MEDS ORDERED: ALUM & MAG HYDROX-SIMETHICONE 30 ML UD PO PRN (20:57)
[2020-05-28] MEDS ORDERED: IV SET AND CAP CHANGE INJ INJ SCH (21:00)
[2020-05-28] MEDS ORDERED: SODIUM CHLORIDE 0.9% 500ML 500 ML ONE (21:42)
[2020-05-28] MEDS ORDERED: NON-FORMULARY MEDICATION 1 EA MIS (Topiramate [Topamax] 200 MG) PO SCH (23:45)
[2020-05-28] MEDS ORDERED: TOPIRAMATE 25 MG TAB ONE (23:47)
[2020-05-29] MEDS ORDERED: SUCRALFATE 1 GM TAB PO SCH ×2 (07:00→11:00)
[2020-05-29] MEDS ORDERED: POTASSIUM CHLORIDE 20 MEQ TAB PO ONE (08:41)
[2020-05-29] MEDS ORDERED: PANTOPRAZOLE SODIUM TAB 40 MG PO SCH (09:00)
[2020-05-29] MEDS ORDERED: ASPIRIN (ENTERIC COATED) 81 MG TAB PO SCH (09:00)
[2020-05-29] MEDS ORDERED: CHOLECALCIFEROL 2,000 IU TAB PO SCH (09:00)
[2020-05-29] MEDS ORDERED: NON-FORMULARY MEDICATION 1 EA MIS (Memantine Hcl-Donepezil Hcl [Namzaric 28-10 Mg] 1 CAP) PO SCH (09:00)
[2020-05-29] MEDS ORDERED: CETIRIZINE HCL 10 MG TAB PO SCH (09:00)
[2020-05-29] MEDS ORDERED: [UNRECOGNIZED DRUG - OTHER] PO SCH (09:00)
[2020-05-29] MEDS ORDERED: TOPIRAMATE 25 MG TAB PO SCH (09:15)
[2020-05-29 10:56] VITALS: BP 110/66; TEMP 98.1; O2SAT 95
[2020-05-29] MEDS ORDERED: FERROUS SULFATE 325 MG TAB PO SCH (20:00)
[2020-05-29] MEDS ORDERED: ASCORBIC ACID 500 MG TAB PO SCH (20:00)
[2020-05-29] MEDS ORDERED: SODIUM CHLORIDE 0.9% (FLUSH) 10 ML SYG IV SCH (21:00)
[2020-05-29] MEDS ORDERED: IMIPRAMINE HCL PO SCH (21:00)
--- NOTE | 2020-05-30 12:44 | DS ---
SUPERVISING PHYSICIAN: Margie Aaron MD DISCHARGE DIAGNOSIS: 1. Symptomatic anemia with a near syncopal episode. 2. Iron-deficiency anemia contributing to #1. 3. Acute renal insufficiency, likely due to prerenal azotemia from both underlying dehydration from multiple diuretics and underlying anemia. 4. History of angiodysplasia of the colon. 5. History of congestive heart failure with last ejection fraction in 2019 between 55 and 60% but no signs of exacerbation at time of admission. 6. Chronic lower back pain. 7. Rheumatoid arthritis. HISTORY OF PRESENT ILLNESS: Ms. Carreno is an 84 year-old female who presented to the Emergency Room today after she apparently had a near syncopal episode that was witnessed by her daughter who is a nurse. Her past medical history is significant for anemia secondary to chronic iron deficiency and chronic renal insufficiency. She has been transfused in the past with similar symptoms related to a near syncopal episode . On this presentation, she was denying any chest pain but notes that she has been getting a little bit short of breath with some activity but no obvious fevers, coughs, nausea or vomiting. She denies any recent falls. Her hemoglobin is 7.8, hematocrit 25.6 with microcytic hypochromic RBC indices. Platelet count 195,000, differential without a left shift. Coagulation studies showed a normal PT/PTT. Renal function does show elevated BUN at 50 with creatinine 2.37. Liver functions all within normal limits. Magnesium normal. Iron panel showed iron of 10, TIBC 392, iron saturation 2.5. Also elevated was noted creatinine at 206, troponin normal at 0.02. TSH 1.66. Urinalysis pending. Chest x-ray was also completed in the Emergency Room and showed no consolidation, just some mild hyperinflation. Vital signs on initial presentation today showed she had a mild temperature of 100.1, a little tachycardic at 118 but blood pressure was 131/64, oxygen saturation 98% on room air with respirations of 20. Given that she had a near syncopal episode and mildly tachycardiac and certainly showing some anemia, Dr. Wylie requested the patient be admitted for continuation of transfusion initiated in the Emergency Room for symptomatic anemia secondary to what appears to be underlying chronic iron-deficiency anemia. She was placed in observation in stale condition. HOSPITAL COURSE: The patient was placed in observation to continue her transfusion of 1 unit of packed red blood cells that was ordered in the Emergency Rooms. He was closely monitored overnight as well as doing neuro checks. She had no neurological changes. Her home medications were resumed. This morning, her lab has stabilized and the patient has had no neurological changes, no syncopal episodes. She will need to followup with Dr. Aaron as well as her teacher associate to make sure she will continue with her iron infusions as previously ordered prior to the blood transfusion. LABORATORY: Hemoglobin 8.6, hematocrit 29.1. Potassium slightly low this morning at 3.4 and she got some potassium supplementation. The remainder of her lab was unremarkable and the patient will be discharged home in stable condition. DISCHARGE PLAN: the patient will be discharged home in stable condition. She is to resume her previous diet and increase her activity as tolerated. She is to followup with Dr. Aaron within 1 to 2 weeks. She is also to followup with a teacher associate and that can be coordinated through Dr. Aaron's office. There have been no changes or additions or her medications. She is to return to the hospital or call Dr. Aaron's office for any problems or complications. DISCHARGE MEDICATIONS: 1. Spironolactone. 2. Vitamin D3. 3. Sucralfate. 4. Imipramine. 5. Zofran. 6. Vitamin C. 7. Potassium chloride. 8. Furosemide. 9. Topiramate. 10. Memantine Donepezil. 11. Dexilant. 12. Nitroglycerin. 13. Iron heme polypeptide. 14. Aspirin. 15. Cheryle. 16. Oxycodone. #[id number] [facility]
== END 2020-05-29 11:30 | disposition home or self-care (01) ==
LOC: ER 16:57 → MS 19:22
PROVIDERS: ADMIT Nurse Practitioner Family; ATTEND Nurse Practitioner Acute Care
DX: D50.9 Iron deficiency anemia, unspecified (principal); R55 Syncope and collapse; N18.6 End stage renal disease; E86.0 Dehydration; K55.20 Angiodysplasia of colon without hemorrhage; I50.9 Heart failure, unspecified; E87.6 Hypokalemia; R00.0 Tachycardia, unspecified; F03.90 Unspecified dementia, unspecified severity, without behavioral disturbance, psychotic disturbance, mood disturbance, and anxiety; G89.29 Other chronic pain; M54.5 Low back pain; M06.9 Rheumatoid arthritis, unspecified; M81.0 Age-related osteoporosis without current pathological fracture; Z66 Do not resuscitate; Z79.82 Long term (current) use of aspirin; Z79.891 Long term (current) use of opiate analgesic; Z79.899 Other long term (current) drug therapy; Z86.73 Personal history of transient ischemic attack (TIA), and cerebral infarction without residual deficits; Z96.653 Presence of artificial knee joint, bilateral; Z90.49 Acquired absence of other specified parts of digestive tract; Z90.710 Acquired absence of both cervix and uterus; Z88.0 Allergy status to penicillin; Z88.6 Allergy status to analgesic agent; Z88.3 Allergy status to other anti-infective agents; Z88.8 Allergy status to other drugs, medicaments and biological substances; Z88.5 Allergy status to narcotic agent
CPT/HCPCS: Q0163; J7512; J7040; 80048; 82553; 80053; 87086; 85014; 85018; 36415 ×2; 81001; 85025; 82550; 83735; 85730; 85610; 84443; 84484; 83880; 83540; 83550; 71045; P9016; 86922; 86900; 86901; 86850; 36430; 99285; 93005

== ENCOUNTER → 2020-06-20 | Outpatient (CLI) | payer MEDICARE, BC | LOC: LAB.O 10:52 | PROVIDERS: ATTEND Family Medicine | DX: D50.9 Iron deficiency anemia, unspecified (principal); D63.1 Anemia in chronic kidney disease; N18.9 Chronic kidney disease, unspecified ==

== ENCOUNTER → 2020-07-18 | Outpatient (CLI) | payer MEDICARE, BC | END | disposition home or self-care (01) | LOC: LAB.O 10:40 | PROVIDERS: ATTEND Family Medicine | DX: Z79.899 Other long term (current) drug therapy (principal) ==

== ENCOUNTER → 2020-10-06 | Outpatient (CLI) | payer MEDICARE, BC | LOC: LAB.O 14:31 | PROVIDERS: ATTEND Family Medicine | DX: D63.1 Anemia in chronic kidney disease (principal); Z79.899 Other long term (current) drug therapy ==

== ENCOUNTER → 2021-01-17 | Outpatient (CLI) | payer MEDICARE, BC | LOC: GMAE 14:47 | PROVIDERS: ATTEND Family Medicine | DX: Z79.899 Other long term (current) drug therapy (principal) ==